=== PATIENT | male | born 1945 | race Caucasian/White ===

== ENCOUNTER 2021-09-18 10:45 | Outpatient (CLI) | payer MEDICARE, SELFPAY ==
--- NOTE | ~2021-09-18 | XR_ITS ---
XR knee RT 3V DATE: 09/18/2021 11:32 INDICATION: Right knee pain, chronic TECHNIQUE: [place] and weightbearing AP and lateral views COMPARISON: None FINDINGS: Mild suprapatellar knee joint effusion is suggested. There is osteopenia. There is patellar enthesopathy at quadriceps and patellar tendon insertion sites. Probable old healed right fibular neck fracture. No recent fracture or dislocation, periosteal reacti on or bone destruction. There is severe loss of medial compartment joint space height. There is mild chondrocalcinosis at med ial and lateral compartments. No radiopaque intra-articular loose body is noted. There is calcification of the femoral and popliteal arteries. IMPRESSION: Mild suprapatellar knee joint effusion Osteopenia Prominent loss of joint space height at the medial compartment Mild chondrocalcinosis Reviewed, dictated and finalized at location A.
== END 2021-09-18 10:46 | disposition home or self-care (01) ==
LOC: ANHIMG 10:50
PROVIDERS: PCP Physician Assistant; Visit Provider Physician Assistant
DX: M11.261 Other chondrocalcinosis, right knee (principal); M25.461 Effusion, right knee; M85.861 Other specified disorders of bone density and structure, right lower leg
CPT/HCPCS: 73562

== ENCOUNTER 2021-09-20 09:43 | Outpatient (CLI) | payer MEDICARE, SELFPAY ==
--- NOTE | ~2021-09-20 | XR_ITS ---
EXAMINATION: XR barium swallow modified DATE: 09/20/2021 10:20 INDICATION: Dysphagia, unspecified TECHNIQUE: Modified barium esophagram was performed by myself to administered fluoroscopy, in conjun ction with speech pathologist who administered barium in varying consistencies as per speech patholog ist documentation. This was recorded on tape. A single fluoroscopic spot image was recorded. The DAP for this procedure was 1. Gycm2. Fluoroscopy exposure time was 1.7 minutes. FINDINGS: Oral stage: Adequate function. Pharyngeal phase: Adequate function. Laryngeal penetration: None. Aspiration: None. Laryngeal sensitivity: Present. IMPRESSION: Normal modified barium swallow. Please refer to speech pathologist findings and specific feeding recommendations. Reviewed, dictated and finalized at location A.
--- NOTE | 2021-09-20 11:13 | STOPEVAL ---
MODIFIED BARIUM SWALLOW EVALUATION: Thank you for referring Joseph Orta JrCristal to [facility] Attending Provider: Adrian Cavazos PA-C fax: [phone] Modified Barium Swallow Evaluation Recent Swallowing History Reports Dysphagia Yes: occasionally food gets caught Onset of Dysphagia it started years ago History of Dysphagia No History of Related Medical Diagnosis Parkinson's Disease Other Factors Impacting Dysphagia None History of Pneumonia No Reported Difficult Consistencies Solids Intake Method Prior to Swallow Oral Evaluation Diet Prior to Swallow Evaluation Regular, Level 7 Liquid Consistency Prior to Swallow Thin (0) Evaluation Consistency Solid Consistency Method of Presentation Spoon Oral Preparatory Symptoms None Oral Phase Symptoms None Pharyngeal Phase Symptoms Within Functional Limits,Bony Protuberance Severity of Vallecular Residue None - 0% No Residue Severity of Pyriform Sinus Residue None - 0% No Residue 8 Point Laryngeal Penetration-Aspiration Material Does Not Enter Airway Scale Cervical/Esophageal Symptoms None Mixed Consistency Method of Presentation Spoon Oral Preparatory Symptoms None Oral Phase Symptoms None Pharyngeal Phase Symptoms Within Functional Limits,Bony Protuberance Severity of Vallecular Residue None - 0% No Residue Severity of Pyriform Sinus Residue None - 0% No Residue 8 Point Laryngeal Penetration-Aspiration Material Does Not Enter Airway Scale Cervical/Esophageal Symptoms Within Functional Limits Pureed Consistency Method of Presentation Spoon Oral Preparatory Symptoms None Oral Phase Symptoms None Pharyngeal Phase Symptoms Within Functional Limits,Bony Protuberance Severity of Vallecular Residue None - 0% No Residue Severity of Pyriform Sinus Residue None - 0% No Residue 8 Point Laryngeal Penetration-Aspiration Material Does Not Enter Airway Scale Cervical/Esophageal Symptoms Within Functional Limits Thin Uncontrolled 2 Method of Presentation Straw Oral Preparatory Symptoms None Oral Phase Symptoms None Pharyngeal Phase Symptoms Within Functional Limits,Bony Protuberance Severity of Vallecular Residue None - 0% No Residue Severity of Pyriform Sinus Residue None - 0% No Residue 8 Point Laryngeal Penetration-Aspiration Material Does Not Enter Airway Scale Cervical/Esophageal Symptoms None Thin Uncontrolled 1 Method of Presentation Cup Oral Preparatory Symptoms None Oral Phase Symptoms None Pharyngeal Phase Symptoms Within Functional Limits
== END 2021-09-20 09:44 | disposition home or self-care (01) ==
LOC: ANHIMG 09:44
PROVIDERS: PCP Physician Assistant; Visit Provider Physician Assistant
DX: R13.10 Dysphagia, unspecified (principal)
CPT/HCPCS: 92611

== ENCOUNTER 2022-07-26 02:27 | Day surgery (SDC) | payer MEDICARE, SELFPAY ==
[2022-07-11 14:28] VITALS: BMI 27.8
--- NOTE | 2022-07-26 10:31 | WPDANESEPPF ---
Anes - Initial Pre Proc Eval Procedure: Operation Date: 07/26/22 14:15 Proposed Procedures p Esophagogastroduodenoscopy - Zander Alfonso MD Date/Time: 07/26/22 10:31 Surgeon: Zander Alfonso MD Pre Op Diagnosis: dysphagia Patient Data Age: 76 Gender: M Height: 1.7 m Weight: 80.5 kg Allergies Allergy/AdvReac Type Severity Reaction Status Date / Time lisinopril AdvReac Intermediate Cough Verified 07/26/22 10:30 Home Medications Medication Instructions Recorded Confirmed Type aspirin 81 mg tablet,delayed 81 mg PO DAILY 06/26/21 07/11/22 History release (Adult Aspirin Regimen) donepezil 10 mg tablet 10 mg PO QHS #90 tabs 12/31/21 07/11/22 Rx metformin 500 mg tablet 500 mg PO BID #180 tabs 12/31/21 07/11/22 Rx dulaglutide 0.75 mg/0.5 mL 0.75 mg (0.5 mL) subcut WEEKLY #2 01/29/22 07/11/22 Rx subcutaneous pen injector mL (Trulicity) memantine 10 mg tablet 10 mg PO BID #180 tabs 02/04/22 07/11/22 Rx finasteride 5 mg tablet 5 mg PO DAILY #90 tabs 02/06/22 07/11/22 Rx carbidopa 25 mg-levodopa 100 mg 1 tablet PO TID #270 tabs 03/01/22 07/11/22 Rx tablet glimepiride 4 mg tablet 4 mg PO QAM #90 tabs 03/01/22 07/11/22 Rx metoprolol succinate 25 mg 25 mg PO DAILY #90 tabs 03/13/22 07/11/22 Rx tablet,extended release 24 hr pramipexole 1.5 mg tablet 1.5 mg PO TID #270 tabs 03/26/22 07/11/22 Rx empagliflozin 25 mg tablet 25 mg PO DAILY #90 tabs 04/11/22 07/11/22 Rx (Jardiance) rosuvastatin 20 mg tablet 20 mg PO DAILY #90 tabs 04/11/22 07/11/22 Rx tamsulosin 0.4 mg capsule 0.4 mg PO DAILY #90 caps 02/03/23 Rx Patient hx anesthesia problems: none Family hx anesthesia problems: none Results Review: All pre-operative results and documents have been reviewed as part of the pre-operative evaluation. [facility] Past Medical History Medical History Cancer Diabetes History of ankle fracture Surgical History Surgical History History of arthroscopic knee surgery History of heart bypass surgery History of pancreatectomy Family History Family History Father Hypertension Heart disease Cerebrovascular accident Social History Social History Smoking status: Former smoker Second hand tobacco smoke exposure: No Smoking end date: 04/08/86 Alcohol intake: never Substance use: unknown Substance use type: does not use Lack of Transportation: No Lack of Food: Never True Current Housing: I Have Housing Concerned About Future Housing: No Difficulty Paying Gas/Electric Bills: No Difficulty Paying for Meds: No Currently Unemployed: No Education: Bachelor's Degree Difficulty w/ Childcare or Family Care: No Living arrangements: with family Spiritual care concerns: No Anes - Eval Final PreProcedure Day of Procedure 07/26/22 10:31 Patient weight: overweight Heart: regular rate and rhythm Lungs: clear to auscultation Neurological: alert and oriented Last oral intake: 4 hours (coffee 530am) Emergent: no Anesthetic plan: proceed Anesthesia type and monitoring: general GIVS and standard monitoring Results Review: All pre-operative results and documents have been reviewed as part of the pre-operative evaluation. Informed Consent: The patient's anesthetic plan and its attendant risks and benefits were discussed with the patient/family/POA. Questions were solicited and answers provided to the satisfaction of the patient/family/POA.
[2022-07-26 10:32] VITALS: BP 126/70; PULSE 62; RESP 18; TEMP 36.2; O2SAT 100
[2022-07-26] MEDS: LACTATED RINGERS 1,000 ML 150 ML IV CONT (10:47)
--- NOTE | 2022-07-26 10:51 | PM.HPGS ---
History of Present Illness History of Present Illness Consent: Risks, benefits, and alternatives have been discussed and questions answered. Patient agrees to proceed with procedure. Chief complaint: dysphagia Narrative: Joseph Orta Jr. is a 76 year old male with progressive dysphagia over several months, had EGD with dilatation about 20 years ago Review of Systems Constitutional: Constitutional: Denies headache(s) and Denies weakness Eyes: Eyes: Denies blurry vision ENT: Reports Normal hearing present, Denies headache(s) and Denies neck pain Cardiovascular: Cardiovascular: Denies chest pain and Denies dyspnea Respiratory: Respiratory: Denies dyspnea Gastrointestinal: Gastrointestinal: Reports no additional gastrointestinal complaints Genitourinary: Genitourinary: Denies dysuria Musculoskeletal: Musculoskeletal: Denies neck pain Integumentary/Breasts: Skin/Breast: Denies dry skin Neurologic: Reports Normal hearing present, Denies headache(s) and Denies weakness Psychiatric: Psychiatric: Denies anxiety Endocrine: Endocrine: Denies change in body appearance Hematologic/Lymphatic: Hematologic/Lymphatic: Denies easy bleeding Allergic/Immunologic: Allergic/Immunologic: Denies urticaria PMFSH Past Medical History Medical History (Updated 07/26/22 @ 10:51 by Zander Alfonso MD) Cancer Diabetes Dysphagia History of ankle fracture Surgical History Surgical History History of arthroscopic knee surgery History of heart bypass surgery History of pancreatectomy Family History Family History Father Hypertension Heart disease Cerebrovascular accident Social History Social History Smoking status: Former smoker Second hand tobacco smoke exposure: No Smoking end date: 04/08/86 Alcohol intake: never Substance use: unknown Substance use type: does not use Lack of Transportation: No Lack of Food: Never True Current Housing: I Have Housing Concerned About Future Housing: No Difficulty Paying Gas/Electric Bills: No Difficulty Paying for Meds: No Currently Unemployed: No Education: Bachelor's Degree Difficulty w/ Childcare or Family Care: No Living arrangements: with family Spiritual care concerns: No Meds Home Medications and Allergies Home Medications Medication Instructions Recorded Confirmed Type aspirin 81 mg tablet,delayed 81 mg PO DAILY 06/26/21 07/11/22 History release (Adult Aspirin Regimen) donepezil 10 mg tablet 10 mg PO QHS #90 tabs 12/31/21 07/11/22 Rx metformin 500 mg tablet 500 mg PO BID #180 tabs 12/31/21 07/11/22 Rx dulaglutide 0.75 mg/0.5 mL 0.75 mg (0.5 mL) subcut WEEKLY #2 01/29/22 07/11/22 Rx subcutaneous pen injector mL (Trulicity) memantine 10 mg tablet 10 mg PO BID #180 tabs 02/04/22 07/11/22 Rx finasteride 5 mg tablet 5 mg PO DAILY #90 tabs 02/06/22 07/11/22 Rx carbidopa 25 mg-levodopa 100 mg 1 tablet PO TID #270 tabs 03/01/22 07/26/22 Rx tablet glimepiride 4 mg tablet 4 mg PO QAM #90 tabs 03/01/22 07/11/22 Rx metoprolol succinate 25 mg 25 mg PO DAILY #90 tabs 03/13/22 07/26/22 Rx tablet,extended release 24 hr pramipexole 1.5 mg tablet 1.5 mg PO TID #270 tabs 03/26/22 07/11/22 Rx empagliflozin 25 mg tablet 25 mg PO DAILY #90 tabs 04/11/22 07/11/22 Rx (Jardiance) rosuvastatin 20 mg tablet 20 mg PO DAILY #90 tabs 04/11/22 07/11/22 Rx tamsulosin 0.4 mg capsule 0.4 mg PO DAILY #90 caps 07/12/22 07/26/22 Rx Allergies Allergy/AdvReac Type Severity Reaction Status Date / Time lisinopril AdvReac Intermediate Cough Verified 07/26/22 10:30 Vital Signs Vital Signs - 24 hr 07/26/22 10:32 Temperature 97.1 F L Pulse Rate 62 Respiratory Rate 18 Blood Pressure 126/70 Pulse Oximetry 100 Oxygen Delivery Room Air Exam Const: General: comfo
[2022-07-26 10:56] LABS: Glucose Point of Care 146 mg/dl (65-105)
[2022-07-26 11:08] VITALS: BP 124/63; PULSE 68; RESP 22; O2SAT 100
[2022-07-26 11:18] VITALS: BP 113/68; PULSE 80; RESP 15; O2SAT 98
[2022-07-26 11:28] VITALS: BP 130/91; PULSE 88; RESP 20; O2SAT 95
== END 2022-07-26 11:56 | disposition home or self-care (01) ==
PROVIDERS: PCP Physician Assistant; Visit Provider Internal Medicine Gastroenterology
PROC: 0DJ08ZZ Inspection of Upper Intestinal Tract, Via Natural or Artificial Opening Endoscopic (ICD-10-PCS; CPT 43235; principal; 2022-07-26 14:15)
DX: K21.00 Gastro-esophageal reflux disease with esophagitis, without bleeding (principal); K22.2 Esophageal obstruction; K44.9 Diaphragmatic hernia without obstruction or gangrene; K29.70 Gastritis, unspecified, without bleeding; E11.9 Type 2 diabetes mellitus without complications; Z95.1 Presence of aortocoronary bypass graft; Z87.891 Personal history of nicotine dependence; Z79.82 Long term (current) use of aspirin; Z79.84 Long term (current) use of oral hypoglycemic drugs; Z79.899 Other long term (current) drug therapy
CPT/HCPCS: 43239; 43249; 82948; 88305; C1726; J2704; J7120

== ENCOUNTER 2023-02-28 18:04 | Emergency (ER) | payer MEDICARE, SELFPAY ==
--- NOTE | ~2023-02-28 | CT_ITS ---
EXAMINATION: CT cervical spine wo con DATE: 02/28/2023 19:11 INDICATION: Tripped over dog, fell and struck head on concrete TECHNIQUE: Computed tomography (CT) of the cervical spine was performed without intravenous contrast. Automated exposure control and iterative reconstruction technique were employed. Exam dose: 274.39 mGy-cm total exam DLP. COMPARISON: None FINDINGS: C1 and C2 are normally aligned and the odontoid process is intact. No fracture or dislocati on or locked facet or prevertebral soft tissue swelling is detected. There is degenerative change at the articulation of the anterior process of the atlas and the odontoi d process. Very prominent anterior spurring is noted in the cervical spine. There is fusion of the apophyseal pretty ints on the right at C2-3 and degenerative change at the remaining cervical apophyseal joints. Uncove rtebral joint spurring is noted at multiple levels, most prominent on the left at C3-4 and bilaterall y at C6-7.. IMPRESSION: Cervical spondylosis No fracture or dislocation or locked facet Reviewed, dictated and finalized at Location A. Reviewed, dictated and finalized at location A.
--- NOTE | ~2023-02-28 | CT_ITS ---
EXAMINATION: CT brain wo con DATE: 02/28/2023 19:10 INDICATION: Fall. Struck head on concrete TECHNIQUE: Computed tomography (CT) of the head was performed without intravenous contrast. The mA wa s adjusted according to patient size. Iterative reconstruction technique was employed. Exam dose: 60 5.33 mGy-cm total exam DLP. COMPARISON: None FINDINGS: High posterior left parietal cephalohematoma. No coup or contrecoup intracranial injury is noted. There is central and cortical cerebral and cerebellar atrophy. No intracranial mass lesion or hemorrhage or cerebrovascular accident, midline shift or mass effect. No subdural or epidural hematoma is detected. There is nonspecific diminished attenuation of the cerebral white matter, likely due to chronic small vessel ischemic change. Cerebral atherosclerosis is noted. No skull fracture or bone destruction. There is prominent opacification of some right ethmoid air cells as well as opacification in the incl uded very upper aspect of the right maxillary sinus. The mastoid air cells are normally developed and aerated. IMPRESSION: High posterior left parietal cephalohematoma; no skull fracture or acute intracranial fi nding Reviewed, dictated and finalized at Location A. Reviewed, dictated and finalized at location A. IMPRESSION: High posterior left parietal cephalohematoma; no skull fracture or acute intracranial finding
[2023-02-28 18:43] VITALS: BP 126/86; PULSE 82; RESP 16; TEMP 36.8; O2SAT 100
--- NOTE | 2023-02-28 20:17 | PC.NURSE ---
Pt was A&Ox4. and pt did not want to wait any longer. Left before being seen.
== END 2023-02-28 21:36 | disposition left against medical advice (07) ==
PROVIDERS: Emergency Provider Emergency Medicine; PCP Physician Assistant
DX: S09.90XA Unspecified injury of head, initial encounter (principal); W01.0XXA Fall on same level from slipping, tripping and stumbling without subsequent striking against object, initial encounter
CPT/HCPCS: 70450; 72125; 99199

== ENCOUNTER 2023-04-25 09:15 | Inpatient (IN) | payer MEDICARE, SELFPAY ==
[2023-04-25] VITALS (8 sets, daily range): BP systolic 131–163; BP diastolic 63–94; PULSE 74–90; RESP 15–20; TEMP 36.4–37.6; O2SAT 91–99; BMI 25.2
--- NOTE | ~2023-04-25 | XR_ITS ---
EXAMINATION: XR chest 1V portable DATE: 04/25/2023 10:15 INDICATION: Cough. TECHNIQUE: A single frontal view of the chest was obtained. COMPARISON: None. FINDINGS: There are airspace opacities in left lower lung zone. No pleural effusion or pneumothorax. The heart size is normal. Median sternotomy wires are noted. IMPRESSION: 1. Airspace opacities in left lower lung zone, consistent with atelectasis versus pneumonia. Reviewed, dictated and finalized at location A. T ROPE WALKER IMPRESSION: 1. Airspace opacities in left lower lung zone, consistent with atelectasis vers us pneumonia.
--- NOTE | ~2023-04-25 | NM_ITS ---
EXAMINATION: NM lung vent and perfusion DATE: 04/28/2023 13:33 INDICATION: Acute hypoxia with poor quality pulmonary artery CT angiogram. TECHNIQUE: 10.3 mCi xenon-133 by inhalation and 0.8 mCi Tc-99m MAA by intravenous route. Scintigraph ic images of the chest were obtained. COMPARISON: CT dated 04/27/2023 FINDINGS: There is homogeneous radiotracer activity throughout the lungs on the single breath ventilation seque nce. There is however some delayed washout in the left lung suggesting some degree of obstructive pul monary disease. Small region of decreased perfusion at the posterior lingula with corresponding airsp palmer opacities on prior CT. IMPRESSION: 1. Low probability for pulmonary embolism. Reviewed, dictated and finalized at location A. [employer]DEL [employer]
--- NOTE | ~2023-04-25 | XR_ITS ---
EXAMINATION: XR chest 1V portable INDICATION: Shortness of breath TECHNIQUE: Portable AP chest at 0540 hours COMPARISON: 04/29/2023 FINDINGS: Bibasilar airspace opacities persist but have improved. Small pleural effusions have also d ecreased. There is no pneumothorax. The cardiomediastinal silhouette is stable. IMPRESSION: 1. Improved bibasilar airspace opacities, consistent with pneumonia. 2. Small pleural effusions. Reviewed, dictated and finalized at location F. OIDERY WORKER
--- NOTE | ~2023-04-25 | XR_ITS ---
EXAMINATION: XR chest 1V portable DATE: 04/29/2023 05:25 INDICATION: Pneumonia. TECHNIQUE: A single frontal view of the chest was obtained. COMPARISON: Chest single view 04/27/2023 FINDINGS: There are airspace opacities in the lower lung zones. There are small pleural effusions. No pneumothorax. The heart size is normal. Median sternotomy wires are noted. IMPRESSION: 1. Airspace opacities in the lower lung zones with worsening on the right, consistent with pneumonia. 2. Small pleural effusions. Reviewed, dictated and finalized at location E. MING MACHINE SET UP OPERATOR IMPRESSION: 1. Airspace opacities in the lower lung zones with worsening on the right, cons istent with pneumonia. 2. Small pleural effusions.
--- NOTE | ~2023-04-25 | XR_ITS ---
EXAMINATION: XR chest 1V portable DATE: 04/27/2023 10:49 INDICATION: Pneumonia. TECHNIQUE: A single frontal view of the chest was obtained. COMPARISON: Chest single view 04/25/2023 FINDINGS: The patient is rotated to his right. There are airspace opacities in left lower lung zone. No pleural effusion or pneumothorax. The heart size is normal. Median sternotomy wires are noted. IMPRESSION: 1. Stable airspace opacities in left lower lung zone, consistent with atelectasis versus pneumonia. Reviewed, dictated and finalized at location A. DRAWER IMPRESSION: 1. Stable airspace opacities in left lower lung zone, consistent with atelectas is versus pneumonia.
--- NOTE | ~2023-04-25 | XR_ITS ---
MODIFIED ESOPHAGRAM HISTORY: Recurrent an ongoing aspiration pneumonia TECHNIQUE: Modified barium esophagram was performed on 05/02/2023. I administered fluoroscopy and per formed the exam with speech pathologist. Patient was seated for lateral fluoroscopic imaging for ing estion of thin liquids, pudding, solids and quantified amounts, followed by thin liquids in uncontrol led amounts. This was recorded on tape. A single fluoroscopic spot image was also recorded. The DAP f or this procedure was 2.08 Gycm2. The amount of fluoroscopy time used during this procedure was 3.5 m inutes. FINDINGS: Oral stage: Adequate function. Pharyngeal stage: There is reduced laryngeal elevation, laryngeal and adduction and tongue base retra ction. Small to moderate residue in the vallecula and moderate to large amount of residue at the piri form sinus. There is laryngeal penetration without aspiration with thin liquids, pudding consistencie s and complex consistency of fluid and pudding. This improved with swallows with the head in flexion. There are prominent cervical anterior endplate osteophytes which impress upon the posterior wall of the upper esophagus. Cervical/esophageal stage: Adequate function. IMPRESSION: Prominent pharyngeal dysphagia with laryngeal penetration and aspiration with multiple co nsistencies with some improvement with the head in flexion. Please correlate with speech pathologist findings and specific feeding recommendations. Reviewed, dictated and finalized at location A. UM FORMING MACHINE OPERATOR IMPRESSION: Prominent pharyngeal dysphagia with laryngeal penetration and aspir ation with multiple consistencies with some improvement with the head in flexio n. Please correlate with speech pathologist findings and specific feeding rosalio mmendations.
--- NOTE | ~2023-04-25 | CT_ITS ---
EXAMINATION: CT abdomen pelvis wo con DATE: 04/27/2023 16:59 INDICATION: diarrhea TECHNIQUE: Computed tomography (CT) of the abdomen and pelvis was performed without intravenous contr ast. Automated exposure control and iterative reconstruction technique were employed. The dose-length product was 428.65 mGy-cm. COMPARISON: Concurrent CTPA. FINDINGS: Lower thorax: Coronary artery calcifications. Scattered subsegmental consolidative opacities. Liver: Normal. Biliary/Gallbladder: Gallbladder is absent. No bile duct dilation. Pancreas: No mass or duct dilation. Spleen: Normal. Adrenals: 2.0 cm indeterminate density (23 Hounsfield units) left adrenal mass. Kidneys: No suspicious mass, obstructing stone, or hydronephrosis. GI tract: No small or large bowel dilation. Normal appendix. Mesentery/Peritoneum: No ascites, mass, or free air. Small cluster of rounded calcifications between the descending colon and right lobe of the liver, likely dystrophic calcifications. Retroperitoneum: No mass. Atherosclerotic abdominal aortic and/or arterial calcifications. Pelvis: Prostatomegaly. Bladder diverticuli. Soft Tissues: Multiple fat-containing anterior abdominal hernias. Bones: No acute osseous finding. IMPRESSION: No acute abdominopelvic process detected. Indeterminate 2 cm left adrenal mass, probably benign, consider 12 month follow-up adrenal CT if ther e is no history of cancer. Reviewed, dictated and finalized at location K. AURANT COOK IMPRESSION: No acute abdominopelvic process detected. Indeterminate 2 cm left adrenal mass, probably benign, consider 12 month follow -up adrenal CT if there is no history of cancer.
--- NOTE | ~2023-04-25 | CT_ITS ---
EXAMINATION: CTA chest PE protocol DATE: 04/27/2023 17:00 INDICATION: acute hypoxia TECHNIQUE: Computed tomography angiography (CTA) of the chest was performed with 100 mL Omnipaque-350 intravenous contrast timed to evaluate the pulmonary arteries. Coronal maximum intensity projection 3D-reconstructions were created by the technologist. The dose-length product (DLP) was 353.61 mGy-cm. Automated exposure control and iterative reconstruction technique were employed. COMPARISON: None. FINDINGS: Considerable motion artifact. Lung parenchyma and airways: Multifocal areas of subsegmental consolidation involving the lingula and bilateral lower lobes. Pleura: Unremarkable. Thoracic inlet, axillae and chest wall: Unremarkable. Thoracic aorta: Vertebral artery on the left takes origin directly from the arch. Moderate arch calci fication. Mediastinum: Normal. Heart and pericardium: Normal. Coronary artery calcifications: Mild. Upper abdomen: Please refer to the concurrent CT abdomen and pelvis study for additional details. Bones: No acute osseous finding. Pulmonary arteries: Study quality: Degraded by motion such that segmental emboli could be missed. No central pulmonary emboli detected. IMPRESSION: Significant motion limitation, such that subsegmental and more distal arterial branches are not adequ ately evaluated. No central embolus detected. Pulmonary opacities may represent multifocal pneumonia in the appropriate clinical context. Reviewed, dictated and finalized at location K. UTER TECHNICAL SPECIALIST IMPRESSION: Significant motion limitation, such that subsegmental and more distal arterial branches are not adequately evaluated. No central embolus detected. Pulmonary opacities may represent multifocal pneumonia in the appropriate clini yg context.
[2023-04-25 09:37] LABS: Appearance Urine Clear (Clear); Bacteria Urine None Seen /hpf; Bilirubin Urine Negative (Negative); Blood Urine Negative (Negative); Color Urine Yellow (Yellow); Glucose Urine UA 3+ mg/dL (Negative); Ketones Urine 2+ mg/dL (Negative); Leukocyte Esterase Ur Negative LEU/UL (Negative); Nitrate Urine Negative (Negative); Protein Urine 1+ mg/dL (Negative); RBC Urine 0-2 /hpf (0-2); Specific Grav Ur 1.024 (1.001-1.035); Squamous Epithelial Cell Urine None seen /hpf (Few); Urobilinogen Urine 0.2 mg/dL (<2.0); WBC Urine 0-5 /hpf; pH Urine 5.5 (5.0-9.0)
[2023-04-25 09:45] LABS: Add Urine Microscopic? YES
--- NOTE | 2023-04-25 09:49 | ECG_ITS ---
Measurements Intervals [place] Rate: 77 P: 21 MS: 204 QRS: 35 QRSD: 72 T: 71 QT: 369 QTc: 418 Interpretive Statements SINUS RHYTHM VENTRICULAR PREMATURE COMPLEX NONSPECIFIC T-WAVE ABNORMALITY- HIGH LATERAL LEADS BASELINE ARTIFACT- I, II, III, AVR, AVL, AVF BORDERLINE ECG NO PREVIOUS ECG AVAILABLE FOR COMPARISON Electronically Signed On 04-25-2023 11:31:58 [employer] MACHINE OPERATOR by Dakotah Vaughn D.O.
--- NOTE | 2023-04-25 09:53 | ED.URI ---
HPI - URI/Sore Throat General Chief Complaint: Upper Respiratory Infection Stated Complaint: URI s/s Time Seen by Provider: 04/25/23 09:31 Source: patient and family History of Present Illness HPI Narrative: 77-year-old male with history of dementia, pancreatic cancer, CABG presents today with complaints of cough, sore throat, fatigue, weakness that started on Friday. Patient with loose stools but no diarrhea. Denies nausea, vomiting, abdominal pain, fevers, body aches but does endorse being cold. is at the bedside. Patient able to eat drink at this time without issue. no known sick contacts Related Data Home Medications Medication Instructions Recorded Confirmed aspirin 81 mg tablet,delayed 81 mg PO QHS 06/26/21 04/25/23 release (Adult Aspirin Regimen) metformin 500 mg tablet 500 mg PO DAILY 04/25/23 04/25/23 metoprolol succinate 25 mg 25 mg PO DAILY 04/25/23 04/25/23 tablet,extended release 24 hr Allergies Allergy/AdvReac Type Severity Reaction Status Date / Time lisinopril AdvReac Intermediate Cough Verified 02/28/23 18:05 Review of Systems Review of Systems: All systems reviewed & are unremarkable except as noted in HPI and below PMFSH Past Medical History Medical History Cancer Diabetes Dysphagia History of ankle fracture Surgical History Surgical History History of arthroscopic knee surgery History of heart bypass surgery History of pancreatectomy Family History Family History Father Hypertension Heart disease Cerebrovascular accident Social History Social History Smoking status: Former smoker Second hand tobacco smoke exposure: No Smoking end date: 04/08/86 Alcohol intake: unknown Substance use: former Substance use type: does not use Lack of Transportation: No Lack of Food: Never True Current Housing: I Have Housing Concerned About Future Housing: No Difficulty Paying Gas/Electric Bills: No Difficulty Paying for Meds: No Currently Unemployed: No Education: Bachelor's Degree Difficulty w/ Childcare or Family Care: No Living arrangements: with family Spiritual care concerns: No Exam Const: General: cooperative, healthy appearing, comfortable, no acute distress and well developed Orientation/consciousness: patient oriented x3 HENMT: Head: normal to inspection Throat: posterior oropharynx abnormal erythema; no exudates Eyes: General: appearance normal, both eyes and all related structures Resp: Effort & Inspection: normal respiratory effort and able to speak in complete sentences Auscultation: rales diffuse Cardio: Rate: regular rate Rhythm: regular rhythm Heart sounds: S1 normal heart sound present and S2 normal heart sound present Neuro: General: patient oriented x3 Course Vital Signs Vital signs: Vital Signs Temperature 97.8 F 04/25/23 09:16 Pulse Rate 83 04/25/23 09:16 Respiratory Rate 20 04/25/23 09:16 Blood Pressure 132/66 04/25/23 09:16 Pulse Oximetry 99 04/25/23 09:16 Oxygen Delivery Room Air 04/25/23 09:16 Temperature 98.4 F 04/26/23 04:24 Pulse Rate 86 04/26/23 04:24 Respiratory Rate 14 04/26/23 04:24 Blood Pressure 118/67 04/26/23 04:24 Pulse Oximetry 93 04/26/23 04:24 Oxygen Delivery Room Air 04/25/23 21:45 MDM - URI/Sore Throat MDM Narrative Medical decision making narrative: 69-year-old male HPI is noted. Workup to include CBC, CMP, B and P,chest x-ray, influenza, COVID, RSV. WBC is 11.1, CMP shows Kidney function normal,BNP 424, chest x-ray shows possible left lower lobe pneumonia, urine without signs of infection. Due to cough will treat with ceftriaxone and azithromycin. Case discussed with the hospitalist due to increased weakness, de
[2023-04-25 10:07] LABS: Influenza A QL RT-PCR Negative (Negative); Influenza B QL RT-PCR Negative (Negative); RSV RNA, RT-PCR Negative (Negative); SARS-CoV-2 RNA PCR Negative (Negative)
[2023-04-25 10:24] LABS: Basophils Percent Auto 0.3 % (0.2-1.2); Eosinophils Absolute Auto 0.2 K/mm3 (0-0.3); Eosinophils Percent Auto 2.2 % (0-4.4); Hematocrit 47.2 % (42.0-52.0); Immature Granulocyte Absolute 0.06 K/mm3 (0.00-0.031); Immature Granulocyte Percent A 0.5 % (0-0.5); Lymphocytes Absolute Auto 2.43 K/mm3 (0.9-3.2); Lymphocytes Percent Auto 21.9 % (18.3-44.2); Mean Corpuscular HGB Conc 31.8 g/dl (32-36); Mean Corpuscular Hemoglobin 28.5 pg (26-34); Mean Corpuscular Volume 89.6 fl (80-100); Mean Platelet Volume 9.7 fl (7.4-10.4); Monocytes Absolute Auto 1.4 K/mm3 (0.1-0.6); Monocytes Percent Auto 12.3 % (2.6-8.5); Neutrophils Percent Auto 62.8 % (45.5-73.1); Platelet Count Result 206 k/mm3 (150-375); Red Blood Count 5.27 M/mm3 (4.6-6.20); White Blood Count 11.1 K/mm3 (4.5-10.0)
[2023-04-25 10:35] LABS: Alanine Aminotransferase 26 U/L (6-50); Albumin Level 3.9 g/dL (3.5-5.1); Alkaline Phosphatase 112 U/L (38-126); Anion Gap 13 mmol/L (8-16); Aspartate Amino Transferase 37 U/L (17-59); Blood Urea Nitrogen 14 mg/dL (9-20); Calcium 8.3 mg/dL (8.4-10.2); Carbon Dioxide 22 mmol/L (22-30); Chloride 103 mmol/L (98-107); Estimated CRCL calculation 62 ml/min; Estimated Glomerular Filt Rate > 60; Glucose 63 mg/dL (65-110); Potassium 3.5 mmol/L (3.4-5.0); Sodium 138 mmol/L (137-145)
[2023-04-25 10:42] LABS: NT Pro B Type Natriuretic Pept 424 pg/mL (19.9-100)
[2023-04-25] MEDS: SODIUM CHLORIDE 0.9% IV 500 ML 999 ML IV CONT (10:44)
[2023-04-25] MEDS: cefTRIAXone 2 GM/NS 100 ML 2 GM/100 ML BAG IVPB (11:55)
[2023-04-25] MEDS: AZITHROMYCIN 500 MG/NS 250 ML 500 MG/250 ML BAG 250 MG IVPB (12:18)
--- NOTE | 2023-04-25 12:34 | PC.NURSE ---
This patient, Joseph Orta Jr., was admitted to Medical Room 244-. Patient/family oriented to hospital policies and general routines including ID bracelet, bed and alarms, visiting hours, pain management, procedures, bathroom and other care routines, personal items, smoking policy, room service/diet, and visiting hours. Information on how to activate the Rapid Response Team has been discussed. Patient/Family are encouraged to report perceived risks to care and to ask questions if they do not understand what they are told or what they should do.
[2023-04-25 13:26] LABS: Lactic Acid Reflex 1.1 mmol/L (0.7-2.0)
[2023-04-25 13:30] LABS: CRP 4.5 mg/dL (<1.0)
--- NOTE | 2023-04-25 15:24 | PM.IMHP ---
H&P: HPI History of Present Illness Date/Time: 04/25/23 15:24 Chief Complaint: weakness Narrative: This is a 69-year-old male juan j with a past medical history of dementia, diabetes, parkinson's disease, BPH and CABG. The HPI is obtained from medical record. When I tried to interview the patient he refused to participate and asked that I call his Aby. When I completed in ROS with him he denied any complaints. I tried to contact his by phone but received a voicemail. According to the ER notes, he presents to the ER with his with complaints of cough, sore throat, fatigue, weakness for the past 2 days. In the ER his white count was mildly elevated at 11.1, BNP 424, CRP 4.5, glucose 63. Chest x-ray shows airspace opacities in the left lower lung zone consistent with atelectasis versus pneumonia. Lactic acid was normal, he is afebrile, and not requiring oxygen at this time. On assessment his lungs are coarse with rhonchi throughout bilateral lower lobes. He was admitted for concerns of community-acquired pneumonia with treatment of IV antibiotics. Review of Systems Review of Systems: ROS unobtainable: Yes unobtainable due to mental status PMFSH Past Medical History Medical History Cancer Diabetes Dysphagia History of ankle fracture Surgical History Surgical History History of arthroscopic knee surgery History of heart bypass surgery History of pancreatectomy Family History Family History Father Hypertension Heart disease Cerebrovascular accident Social History Social History Smoking status: Former smoker Second hand tobacco smoke exposure: No Smoking end date: 04/08/86 Alcohol intake: unknown Substance use: former Substance use type: does not use Lack of Transportation: No Lack of Food: Never True Current Housing: I Have Housing Concerned About Future Housing: No Difficulty Paying Gas/Electric Bills: No Difficulty Paying for Meds: No Currently Unemployed: No Education: Bachelor's Degree Difficulty w/ Childcare or Family Care: No Living arrangements: with family Spiritual care concerns: No Meds Home Medications and Allergies Home Medications Medication Instructions Recorded Confirmed Type aspirin 81 mg tablet,delayed 81 mg PO DAILY 06/26/21 01/03/23 History release (Adult Aspirin Regimen) omeprazole 40 mg capsule,delayed 40 mg PO DAILY #30 caps 07/26/22 01/03/23 Rx release memantine 10 mg tablet 10 mg PO BID #180 tabs 08/29/22 01/03/23 Rx finasteride 5 mg tablet 5 mg PO DAILY #90 tabs 09/02/22 01/03/23 Rx glimepiride 4 mg tablet 4 mg PO QAM #90 tabs 12/16/22 01/03/23 Rx dulaglutide 0.75 mg/0.5 mL 0.75 mg (0.5 mL) subcut WEEKLY #2 12/19/22 01/03/23 Rx subcutaneous pen injector mL (Trulicity) rosuvastatin 20 mg tablet 20 mg PO DAILY #90 tabs 12/26/22 01/03/23 Rx carbidopa 25 mg-levodopa 100 mg 1 tablet PO TID #270 tabs 01/02/23 01/02/23 Rx tablet donepezil 10 mg tablet 10 mg PO QHS #90 tabs 01/02/23 01/02/23 Rx metformin 500 mg tablet See Rx Instructions .Route 01/02/23 01/02/23 Rx .COMPLEX #180 tabs metoprolol succinate 25 mg See Rx Instructions .Route 01/02/23 01/02/23 Rx tablet,extended release 24 hr .COMPLEX #90 tabs tamsulosin 0.4 mg capsule 0.4 mg PO DAILY #90 caps 01/02/23 01/02/23 Rx pramipexole 1.5 mg tablet 0.75 mg PO QHS #270 tabs 01/03/23 Rx empagliflozin 25 mg tablet 25 mg PO DAILY #90 tabs 04/10/23 Rx (Jardiance) Allergies Allergy/AdvReac Type Severity Reaction Status Date / Time lisinopril AdvReac Intermediate Cough Verified 02/28/23 18:05 Vital Signs Vital Signs - 24 hr 04/25/23 09:16 04/25/23 09:24 04/25/23 09:33 Temperature 97.8 F Pulse Rate 83 74 Respiratory Rate 20 16
[2023-04-25 16:09] LABS: Glucose Point of Care 49 mg/dl (65-105)
[2023-04-25] MEDS: GLUCOSE ORAL GEL 15 GM OF GLUCSE IN 37.5 GM TUBE PO (16:12)
[2023-04-25 16:45] LABS: Glucose Point of Care 50 mg/dl (65-105)
[2023-04-25 16:50] LABS: Glucose Point of Care 58 mg/dl (65-105)
[2023-04-25] MEDS: DEXTROSE 50% 25 GM/50 ML SYRINGE IV PUSH (16:55)
[2023-04-25 17:18] LABS: Glucose Point of Care 172 mg/dl (65-105)
[2023-04-25 17:20] LABS: Hemoglobin A1C 8.4 % (<5.7)
[2023-04-25] MEDS: PHENOL/SOD PHENO SPRAY CHERRY (*BKC) 1 SPRAY MUCOUS MEM (18:32)
[2023-04-25 20:37] LABS: Glucose Point of Care 146 mg/dl (65-105)
[2023-04-25] MEDS: guaiFENesin 12 HR 600 MG TABCR 1200 MG PO (21:42)
[2023-04-26] VITALS (7 sets, daily range): BP systolic 114–123; BP diastolic 62–71; PULSE 80–86; RESP 14–18; TEMP 36.6–36.9; O2SAT 91–98
[2023-04-26 00:11] LABS: Glucose Point of Care 71 mg/dl (65-105)
[2023-04-26 04:56] LABS: Glucose Point of Care 129 mg/dl (65-105)
[2023-04-26 05:54] LABS: Basophils Percent Auto 0.3 % (0.2-1.2); Eosinophils Absolute Auto 0.1 K/mm3 (0-0.3); Eosinophils Percent Auto 0.4 % (0-4.4); Hematocrit 44.6 % (42.0-52.0); Hemoglobin 14.5 g/dL (14.0-18.0); Immature Granulocyte Absolute 0.06 K/mm3 (0.00-0.031); Immature Granulocyte Percent A 0.4 % (0-0.5); Lymphocytes Absolute Auto 2.76 K/mm3 (0.9-3.2); Lymphocytes Percent Auto 20.5 % (18.3-44.2); Mean Corpuscular HGB Conc 32.5 g/dl (32-36); Mean Corpuscular Hemoglobin 28.6 pg (26-34); Mean Platelet Volume 9.5 fl (7.4-10.4); Monocytes Absolute Auto 1.1 K/mm3 (0.1-0.6); Monocytes Percent Auto 7.9 % (2.6-8.5); Neutrophils Absolute Auto 9.5 K/mm3 (1.3-6.7); Neutrophils Percent Auto 70.5 % (45.5-73.1); Platelet Count Result 182 k/mm3 (150-375); Red Blood Count 5.07 M/mm3 (4.6-6.20); Red Cell Distribution Width 15.9 % (11.5-14.5); White Blood Count 13.5 K/mm3 (4.5-10.0)
[2023-04-26 06:08] LABS: Alanine Aminotransferase 27 U/L (6-50); Albumin Level 3.4 g/dL (3.5-5.1); Alkaline Phosphatase 100 U/L (38-126); Anion Gap 10 mmol/L (8-16); Aspartate Amino Transferase 35 U/L (17-59); Bilirubin,Total 1.1 mg/dL (0.2-1.3); Blood Urea Nitrogen 11 mg/dL (9-20); CRP 6.9 mg/dL (<1.0); Calcium 8.2 mg/dL (8.4-10.2); Carbon Dioxide 22 mmol/L (22-30); Chloride 105 mmol/L (98-107); Cholesterol 97 mg/dL (0-200); Estimated CRCL calculation 70 ml/min; Estimated Glomerular Filt Rate > 60; Glucose 126 mg/dL (65-110); HDL Direct 43 mg/dL; Magnesium 1.9 mg/dL (1.6-2.3); Potassium 3.5 mmol/L (3.4-5.0); Sodium 137 mmol/L (137-145); Triglycerides 96 mg/dL (<150)
[2023-04-26 06:17] LABS: LDL Cholesterol Direct 36 mg/dL
[2023-04-26 06:20] LABS: Hemoglobin A1C 8.5 % (<5.7)
[2023-04-26 06:30] LABS: Procalcitonin 2.3 ng/mL
--- NOTE | 2023-04-26 07:00 | PM.IMPN ---
Progress Note: A&P Assessment and Plan (1) CAP (community acquired pneumonia): Code(s): J18.9 - Pneumonia, unspecified organism Status: Acute Assessment and Plan: Complaints of cough, sore throat, fatigue, weakness for the last 2 days WBC slightly elevated 11.1 Afebrile Lung sounds are coarse with rhonchi He received azithromycin and Rocephin in the ER as well as a 500 mL bolus Blood cultures pending Procal 3.0 incentive spirometry prn nebs ordered 04/26: WBC slightly increased today 13.5, CRP increased to 6.9. Clinically he looks better and states that he feels better. (2) Diabetes: Code(s): E11.9 - Type 2 diabetes mellitus without complications Status: Acute Assessment and Plan: Unknown A1C. On glimepiride, metformin, empagliflozin glucose on BMP was 63. Accu check 49. Hypoglycemia protocol ordered SSI low dose. Holding oral agents. a1c ordered for the morning 04/26: Hypoglycemia overnight. Patient required an amp of D50 and blood glucose increased to 176 and remained stable overnight. Poor appetite. Add on nutritional supplements. (3) Dementia: Code(s): F03.90 - Unspecified dementia, unspecified severity, without behavioral disturbance, psychotic disturbance, mood disturbance, and anxiety Status: Acute Assessment and Plan: Alert and orientated to person, hospital, year and month. Did not know the name of the hospital. on donepezil (4) Parkinson's Disease: Code(s): G20 - Parkinson's disease Status: Acute Assessment and Plan: On carbidopa-levodopa (5) BPH (benign prostatic hyperplasia): Code(s): N40.0 - Benign prostatic hyperplasia without lower urinary tract symptoms Status: Acute Assessment and Plan: Stable. tamsulosin, continued. (6) Hyperlipidemia: Code(s): E78.5 - Hyperlipidemia, unspecified Status: Acute Assessment and Plan: On rosuvastatin 20 mg daily lipid panel ordered Triglycerides 96, cholesterol 97, LDL 36, HDL 43. Plan Feeding:diabetic diet Analgesia:tylenol Thromboembolic prophylaxis: lovenox Ulcer prophylaxis: PPI Glycemic control: low dose SSI, hypoglycemia protocol Bowel regimen: miralax prn Lines: PIV Antibiotics: azithromycin and Rocephin Disposition: home when clinically better Subjective Date/time seen: 04/26/23 07:00 Interval history: This is a 69-year-old male juan j with a past medical history of dementia, diabetes, parkinson's disease, BPH and CABG.? The HPI is obtained from medical record.? When I tried to interview the patient he refused to participate and asked that I call his Aby. When I completed in ROS with him he denied any complaints.? I tried to contact his by phone but received a voicemail.? According to the ER notes, he presents to the ER with his with complaints of cough, sore throat, fatigue, weakness for the past 2 days. In the ER his white count was mildly elevated at 11.1, BNP 424, CRP 4.5, glucose 63.? Chest x-ray shows airspace opacities in the left lower lung zone consistent with atelectasis versus pneumonia.? Lactic acid was normal, he is afebrile, and not requiring oxygen at this time.? On assessment his lungs are coarse with rhonchi throughout bilateral lower lobes.? He was admitted for concerns of community-acquired pneumonia with treatment of IV antibiotics. 04/26: Doing well today. Patient says his breathing is better. Lung sounds are improved but still sounds tight. His appetite is poor. Review of Systems Review of Systems: ROS unobtainable: Yes unobtainable due to mental status Exam Narrative: General: flushed, chronically ill appearing, appears stated age. HEENT: normocephalic, atraumatic. Mucous membranes tacky. EOMI, PERRLA, bilateral sclera anicteric, no conjunctival injection. Neck supple without JVD, lymphadenopathy, or bruit. Respiratory: Lung sounds are more clear today but rhoni
[2023-04-26 08:17] LABS: Glucose Point of Care 93 mg/dl (65-105)
[2023-04-26] MEDS: CARBIDOPA/LEVODOPA 25/100 MG TABLET 1 TABLET PO ×3 (08:19→17:41)
[2023-04-26] MEDS: ENOXAPARIN 40 MG/0.4 ML SYRINGE SUB-Q (08:20)
[2023-04-26] MEDS: FINASTERIDE 5 MG TABLET PO (08:20)
[2023-04-26] MEDS: guaiFENesin 12 HR 600 MG TABCR 1200 MG PO ×2 (08:20→22:22)
[2023-04-26] MEDS: MEMANTINE 10 MG TABLET PO ×2 (08:21→17:41)
[2023-04-26] MEDS: TAMSULOSIN HCL 0.4 MG CAPSULE PO (08:22)
[2023-04-26] MEDS: ROSUVASTATIN 10 MG TABLET 20 MG PO (08:22)
[2023-04-26] MEDS: PANTOPRAZOLE 40 MG TABLET PO (08:22)
[2023-04-26] MEDS: METOPROLOL SUCCINATE EXT REL 25 MG TABCR PO (08:26)
[2023-04-26] MEDS: AZITHROMYCIN 500 MG/NS 250 ML 500 MG/250 ML BAG 250 MG IVPB (08:55)
[2023-04-26] MEDS: ALBUTEROL SULFATE NEB 2.5 MG/3 ML INH INHALATION (09:25)
[2023-04-26 12:29] LABS: Glucose Point of Care 185 mg/dl (65-105)
[2023-04-26 17:31] LABS: Glucose Point of Care 118 mg/dl (65-105)
[2023-04-26 20:28] LABS: Glucose Point of Care 159 mg/dl (65-105)
[2023-04-26] MEDS: DONEPEZIL HCL 10 MG TABLET PO (22:21)
[2023-04-26] MEDS: ASPIRIN 81 MG ENTERIC TABLET PO (22:21)
[2023-04-27] VITALS (11 sets, daily range): BP systolic 102–155; BP diastolic 56–77; PULSE 77–108; RESP 18–24; TEMP 36.2–39.3; O2SAT 88–99
[2023-04-27 00:16] LABS: Glucose Point of Care 92 mg/dl (65-105)
[2023-04-27 06:04] LABS: Glucose Point of Care 129 mg/dl (65-105)
[2023-04-27 06:04] LABS: Glucose Point of Care 73 mg/dl (65-105)
[2023-04-27 06:18] LABS: Basophils Absolute Auto 0.1 K/mm3 (0.0-0.1); Basophils Percent Auto 0.5 % (0.2-1.2); Eosinophils Percent Auto 0.1 % (0-4.4); Hematocrit 43.1 % (42.0-52.0); Hemoglobin 14.2 g/dL (14.0-18.0); Immature Granulocyte Absolute 0.04 K/mm3 (0.00-0.031); Immature Granulocyte Percent A 0.4 % (0-0.5); Lymphocytes Absolute Auto 2.12 K/mm3 (0.9-3.2); Lymphocytes Percent Auto 22.8 % (18.3-44.2); Mean Corpuscular HGB Conc 32.9 g/dl (32-36); Mean Corpuscular Hemoglobin 29.2 pg (26-34); Mean Corpuscular Volume 88.7 fl (80-100); Mean Platelet Volume 9.9 fl (7.4-10.4); Monocytes Absolute Auto 0.7 K/mm3 (0.1-0.6); Monocytes Percent Auto 7.8 % (2.6-8.5); Neutrophils Absolute Auto 6.4 K/mm3 (1.3-6.7); Neutrophils Percent Auto 68.4 % (45.5-73.1); Platelet Count Result 199 k/mm3 (150-375); Red Blood Count 4.86 M/mm3 (4.6-6.20); Red Cell Distribution Width 15.8 % (11.5-14.5); White Blood Count 9.3 K/mm3 (4.5-10.0)
[2023-04-27 06:22] LABS: Alanine Aminotransferase 39 U/L (6-50); Albumin Level 3.2 g/dL (3.5-5.1); Alkaline Phosphatase 108 U/L (38-126); Anion Gap 8 mmol/L (8-16); Aspartate Amino Transferase 67 U/L (17-59); Blood Urea Nitrogen 10 mg/dL (9-20); Calcium 7.8 mg/dL (8.4-10.2); Carbon Dioxide 25 mmol/L (22-30); Chloride 102 mmol/L (98-107); Estimated CRCL calculation 62 ml/min; Estimated Glomerular Filt Rate > 60; Glucose 148 mg/dL (65-110); Potassium 3.6 mmol/L (3.4-5.0); Sodium 135 mmol/L (137-145)
--- NOTE | 2023-04-27 07:07 | P.PNIM_ITS ---
Progress Note: A&P Assessment and Plan (1) CAP (community acquired pneumonia): Code(s): J18.9 - Pneumonia, unspecified organism Status: Acute Assessment and Plan: Complaints of cough, sore throat, fatigue, weakness for the last 2 days * WBC slightly elevated 11.1 * Afebrile * Lung sounds are coarse with rhonchi * He received azithromycin and Rocephin in the ER as well as a 500 mL bolus * Blood cultures pending * Procal 3.0 * incentive spirometry * prn nebs ordered 04/26: WBC slightly increased today 13.5, CRP increased to 6.9. Clinically he looks better and states that he feels better. 04/27: WBC normalized today at 9.3., afebrile overnight, repeat chest XR today. (2) Diabetes: Code(s): E11.9 - Type 2 diabetes mellitus without complications Status: Acute Assessment and Plan: Unknown A1C. On glimepiride, metformin, empagliflozin * glucose on BMP was 63. Accu check 49. * Hypoglycemia protocol ordered * SSI low dose. Holding oral agents. * a1c ordered for the morning 04/26: Hypoglycemia overnight. Patient required an amp of D50 and blood glucose increased to 176 and remained stable overnight. Poor appetite. Add on nutritional supplements. 04/27: Blood glucose has been stable. Will switch back to ac/hs (3) Diarrhea: Code(s): R19.7 - Diarrhea, unspecified Status: Acute Assessment and Plan: 5 loose BM yesterday * says he has been having loose stools even before admission. * Suspect this could be viral in nature as he has a suspected viral URI as well as PNA. * No abdominal pain, cramping associated with the loose stools * Imodium prn * Will check c-diff but less likely etiology * Monitor electrolytes and replace as needed (4) Poor nutrition: Code(s): E63.9 - Nutritional deficiency, unspecified Status: Acute Assessment and Plan: DM diet with ensures * Poor intake per his * consult for dietitian (5) Dementia: Code(s): F03.90 - Unspecified dementia, unspecified severity, without behavioral disturbance, psychotic disturbance, mood disturbance, and anxiety Status: Acute Assessment and Plan: Alert and orientated to person, hospital, year and month. Did not know the name of the hospital. * on donepezil (6) Parkinson's Disease: Code(s): G20 - Parkinson's disease Status: Acute Assessment and Plan: On carbidopa-levodopa (7) BPH (benign prostatic hyperplasia): Code(s): N40.0 - Benign prostatic hyperplasia without lower urinary tract symptoms Status: Acute Assessment and Plan: Stable. * tamsulosin, continued. (8) Hyperlipidemia: Code(s): E78.5 - Hyperlipidemia, unspecified Status: Acute Assessment and Plan: On rosuvastatin 20 mg daily * lipid panel ordered * Triglycerides 96, cholesterol 97, LDL 36, HDL 43. Plan Feeding:diabetic diet Analgesia:tylenol Thromboembolic prophylaxis: lovenox Ulcer prophylaxis: PPI Glycemic control: low dose SSI, hypoglycemia protocol Bowel regimen: miralax prn Lines: PIV Antibiotics: azithromycin and Rocephin Disposition: home when clinically better Subjective Date/time seen: 04/27/23 07:07 Interval history: This is a 69-year-old male juan j with a past medical history of dementia, diabetes, parkinson's disease, BPH and CABG.? The HPI is obtained from medical record.? When I tried to interview the patient he refused to participate and asked that I call his Aby. When I completed in ROS
--- NOTE | 2023-04-27 07:07 | PM.IMPN ---
Progress Note: A&P Assessment and Plan (1) CAP (community acquired pneumonia): Code(s): J18.9 - Pneumonia, unspecified organism Status: Acute Assessment and Plan: Complaints of cough, sore throat, fatigue, weakness for the last 2 days WBC slightly elevated 11.1 Afebrile Lung sounds are coarse with rhonchi He received azithromycin and Rocephin in the ER as well as a 500 mL bolus Blood cultures pending Procal 3.0 incentive spirometry prn nebs ordered 04/26: WBC slightly increased today 13.5, CRP increased to 6.9. Clinically he looks better and states that he feels better. 04/27: WBC normalized today at 9.3., afebrile overnight, repeat chest XR today. (2) Diabetes: Code(s): E11.9 - Type 2 diabetes mellitus without complications Status: Acute Assessment and Plan: Unknown A1C. On glimepiride, metformin, empagliflozin glucose on BMP was 63. Accu check 49. Hypoglycemia protocol ordered SSI low dose. Holding oral agents. a1c ordered for the morning 04/26: Hypoglycemia overnight. Patient required an amp of D50 and blood glucose increased to 176 and remained stable overnight. Poor appetite. Add on nutritional supplements. 04/27: Blood glucose has been stable. Will switch back to ac/hs (3) Diarrhea: Code(s): R19.7 - Diarrhea, unspecified Status: Acute Assessment and Plan: 5 loose BM yesterday says he has been having loose stools even before admission. Suspect this could be viral in nature as he has a suspected viral URI as well as PNA. No abdominal pain, cramping associated with the loose stools Imodium prn Will check c-diff but less likely etiology Monitor electrolytes and replace as needed (4) Poor nutrition: Code(s): E63.9 - Nutritional deficiency, unspecified Status: Acute Assessment and Plan: DM diet with ensures Poor intake per his consult for dietitian (5) Dementia: Code(s): F03.90 - Unspecified dementia, unspecified severity, without behavioral disturbance, psychotic disturbance, mood disturbance, and anxiety Status: Acute Assessment and Plan: Alert and orientated to person, hospital, year and month. Did not know the name of the hospital. on donepezil (6) Parkinson's Disease: Code(s): G20 - Parkinson's disease Status: Acute Assessment and Plan: On carbidopa-levodopa (7) BPH (benign prostatic hyperplasia): Code(s): N40.0 - Benign prostatic hyperplasia without lower urinary tract symptoms Status: Acute Assessment and Plan: Stable. tamsulosin, continued. (8) Hyperlipidemia: Code(s): E78.5 - Hyperlipidemia, unspecified Status: Acute Assessment and Plan: On rosuvastatin 20 mg daily lipid panel ordered Triglycerides 96, cholesterol 97, LDL 36, HDL 43. Plan Feeding:diabetic diet Analgesia:tylenol Thromboembolic prophylaxis: lovenox Ulcer prophylaxis: PPI Glycemic control: low dose SSI, hypoglycemia protocol Bowel regimen: miralax prn Lines: PIV Antibiotics: azithromycin and Rocephin Disposition: home when clinically better Subjective Date/time seen: 04/27/23 07:07 Interval history: This is a 69-year-old male juan j with a past medical history of dementia, diabetes, parkinson's disease, BPH and CABG.? The HPI is obtained from medical record.? When I tried to interview the patient he refused to participate and asked that I call his Aby. When I completed in ROS with him he denied any complaints.? I tried to contact his by phone but received a voicemail.? According to the ER notes, he presents to the ER with his with complaints of cough, sore throat, fatigue, weakness for the past 2 days. In the ER his white count was mildly elevated at 11.1, BNP 424, CRP 4.5, glucose 63.? Chest x-ray shows airspace opacities in the left lower lung zone consistent with atelectasis versus pneumonia.? Lactic
[2023-04-27 08:25] LABS: Glucose Point of Care 118 mg/dl (65-105)
[2023-04-27] MEDS: PANTOPRAZOLE 40 MG TABLET PO (10:16)
[2023-04-27] MEDS: ROSUVASTATIN 10 MG TABLET 20 MG PO (10:16)
[2023-04-27] MEDS: FINASTERIDE 5 MG TABLET PO (10:17)
[2023-04-27] MEDS: TAMSULOSIN HCL 0.4 MG CAPSULE PO (10:17)
[2023-04-27] MEDS: MEMANTINE 10 MG TABLET PO ×2 (10:17→17:42)
[2023-04-27] MEDS: guaiFENesin 12 HR 600 MG TABCR 1200 MG PO ×2 (10:17→21:17)
[2023-04-27] MEDS: CARBIDOPA/LEVODOPA 25/100 MG TABLET 1 TABLET PO ×3 (10:17→17:42)
[2023-04-27] MEDS: METOPROLOL SUCCINATE EXT REL 25 MG TABCR PO (10:18)
[2023-04-27] MEDS: ENOXAPARIN 40 MG/0.4 ML SYRINGE SUB-Q (10:18)
[2023-04-27] MEDS: AZITHROMYCIN 500 MG/NS 250 ML 500 MG/250 ML BAG 250 MG IVPB (10:59)
[2023-04-27] MEDS: BELLADONNA ALK/PHENOB ELIX 10 ML, MAG HYDROX/ALUMINUM HYD/SIMETH 30 ML, LIDOCAINE HCL 2... PO (11:00)
[2023-04-27 12:31] LABS: Glucose Point of Care 153 mg/dl (65-105)
--- NOTE | 2023-04-27 14:40 | PCOTNOTE ---
Attempted OT evaluation. Family in room. Patient and family decline OT evaluation stating patient is fatigued. Educated on occupational therapy services. RN notified. Will follow.
[2023-04-27 14:43] LABS: Toxigenic C. Diff NEGATIVE (NEGATIVE)
--- NOTE | 2023-04-27 16:01 | ECG_ITS ---
Measurements Intervals [place] Rate: 110 P: NC: 0 QRS: 11 QRSD: 68 T: 87 QT: 309 QTc: 418 Interpretive Statements ATRIAL FIBRILLATION WITH RAPID VENTRICULAR RESPONSE BORDERLINE ST-T WAVE ABNORMALITY- LAT/HIGH LAT LEADS BASELINE ARTIFACT- I, II, III, AVR, AVL, AVF, V4-V6 ABNORMAL ECG COMPARED TO ECG 04/25/2023 10:05:40 ATRIAL FIBRILLATION NOW PRESENT Electronically Signed On 04-28-2023 9:44:47 DEPUTY ADMINISTRATOR by Dakotah Vaughn D.O.
[2023-04-27] MEDS: ACETAMINOPHEN 325 MG TABLET 650 MG PO (16:20)
[2023-04-27 16:23] LABS: Base Excess ABG 0.8 mEq/l (+/-2.0); Fractional Inspired Oxygen 65 %; HCO3 ABG 23.7 mEq/l (22.0-26.0); Oxygen Content ABG 20.2 %vol (16.0-22.0); Oxygen Saturation ABG 90.6 % (95.0-100.0); Oxyhemoglobin 89.3 % THb (90.0-100.0); PCO2 ABG 33.1 mmHg (35.0-45.0); PO2 ABG 54.5 mmHg (80.0-100.0); PO2 FiO2 Ratio Arterial Blood 0.84 %; Total Hemoglobin 16.1 g/dL (12.0-18.0); pH ABG 7.472 (7.350-7.450)
[2023-04-27 16:24] LABS: Device HIGH FLOW NASAL CANN; Modified Allen's Test Pass; Site Drawn LEFT RADIAL
[2023-04-27 16:54] LABS: Basophils Percent Auto 0.4 % (0.2-1.2); Eosinophils Absolute Auto 0.1 K/mm3 (0-0.3); Eosinophils Percent Auto 0.5 % (0-4.4); Hematocrit 44.8 % (42.0-52.0); Hemoglobin 14.7 g/dL (14.0-18.0); Immature Granulocyte Absolute 0.06 K/mm3 (0.00-0.031); Immature Granulocyte Percent A 0.6 % (0-0.5); Lymphocytes Absolute Auto 1.03 K/mm3 (0.9-3.2); Lymphocytes Percent Auto 10.9 % (18.3-44.2); Mean Corpuscular HGB Conc 32.8 g/dl (32-36); Mean Corpuscular Hemoglobin 28.5 pg (26-34); Mean Corpuscular Volume 86.8 fl (80-100); Monocytes Absolute Auto 0.6 K/mm3 (0.1-0.6); Monocytes Percent Auto 6.1 % (2.6-8.5); Neutrophils Absolute Auto 7.7 K/mm3 (1.3-6.7); Neutrophils Percent Auto 81.5 % (45.5-73.1); Platelet Count Result 209 k/mm3 (150-375); Red Blood Count 5.16 M/mm3 (4.6-6.20); Red Cell Distribution Width 15.7 % (11.5-14.5); White Blood Count 9.5 K/mm3 (4.5-10.0)
[2023-04-27 17:03] LABS: Lactic Acid Reflex 1.6 mmol/L (0.7-2.0)
[2023-04-27 17:13] LABS: NT Pro B Type Natriuretic Pept 482 pg/mL (19.9-100)
[2023-04-27 17:16] LABS: Glucose Point of Care 193 mg/dl (65-105)
[2023-04-27 17:16] LABS: Troponin I < 0.012 ng/mL (0.000-0.034)
[2023-04-27] MEDS: FUROSEMIDE INJ 40 MG/4 ML VIAL IV PUSH (17:43)
[2023-04-27] MEDS: ENOXAPARIN 80 MG/0.8 ML SYRINGE 73 MG SUB-Q (19:01)
[2023-04-27] MEDS: PIPERACILLN/TAZ 3.375GM/NS50ML 3.375 GM/50 ML BAG IVPB (19:01)
[2023-04-27 19:03] LABS: Appearance Urine Clear (Clear); Bacteria Urine None Seen /hpf; Bilirubin Urine Negative (Negative); Blood Urine Negative (Negative); Color Urine Yellow (Yellow); Glucose Urine UA 3+ mg/dL (Negative); Ketones Urine 2+ mg/dL (Negative); Leukocyte Esterase Ur Negative LEU/UL (NEGATIVE); Nitrate Urine Negative (Negative); Non Pathogenic Casts 0-2; Protein Urine Trace mg/dL (Negative); RBC Urine 0-2 /hpf (0-2); Squamous Epithelial Cell Urine None seen /hpf (Few); Urobilinogen Urine 0.2 mg/dL (<2.0); WBC Urine 0-5 /hpf (0-3); pH Urine 5.5 (5.0-9.0)
[2023-04-27 19:16] LABS: Add Urine Microscopic? YES; Specific Grav Ur 1.046 (1.001-1.035)
[2023-04-27 19:33] LABS: Influenza A QL RT-PCR Negative (Negative); Influenza B QL RT-PCR Negative (Negative); RSV RNA, RT-PCR Negative (Negative); SARS-CoV-2 RNA PCR Negative (Negative)
[2023-04-27] MEDS: ASPIRIN 81 MG ENTERIC TABLET PO (21:17)
[2023-04-27] MEDS: DONEPEZIL HCL 10 MG TABLET PO (21:17)
[2023-04-27] MEDS: INSULIN ASPART (*BKC) 100 UNITS/ML SUB-Q (21:19)
[2023-04-27 21:28] LABS: Glucose Point of Care 215 mg/dl (65-105)
[2023-04-27 22:16] LABS: Alanine Aminotransferase 23 U/L (6-50); Albumin Level 3.5 g/dL (3.5-5.1); Alkaline Phosphatase 126 U/L (38-126); Anion Gap 12 mmol/L (8-16); Aspartate Amino Transferase 63 U/L (17-59); Blood Urea Nitrogen 11 mg/dL (9-20); Calcium 8.3 mg/dL (8.4-10.2); Carbon Dioxide 22 mmol/L (22-30); Chloride 102 mmol/L (98-107); Estimated CRCL calculation 70 ml/min; Estimated Glomerular Filt Rate > 60; Glucose 190 mg/dL (65-110); Potassium 3.5 mmol/L (3.4-5.0); Sodium 136 mmol/L (137-145)
[2023-04-28] VITALS (15 sets, daily range): BP systolic 98–129; BP diastolic 48–90; PULSE 62–86; RESP 18–24; TEMP 36.2–37.1; O2SAT 90–100; BMI 25.2
--- NOTE | 2023-04-28 | ECHO_ITS ---
Patient Info Name: Joseph Orta Age: 77 years : 1945 Gender: Male Ht: 67 in Wt: 160 lbs BSA: 1.86 m2 HR: 62 bpm BP: 99 / 48 mmHg Heart Rhythm: Sinus Rhythm Technical Quality: Fair Exam Date: 04/28/2023 2:16 PM Exam Location: Echo Lab Patient Status: Inpatient Admit Date: 04/26/2023 Staff Ordering Physician: Sully Brito APRN Cardiology Manager: Tamiko Gonzales RDCS Attending Provider: Sydnee Sanders MD Referring Physician: Daryl OWUSU; Exam Type: CA echo doppler color flow Study Info Indications - r/o right heart starin Complete two-dimensional, color flow and Doppler transthoracic echocardiogram is performed. Summary 1. Complete two-dimensional, color flow and Doppler transthoracic echocardiogram is performed. 2. Normal left and right ventricular size and systolic function. 3. Grade 1 diastolic noncompliance. 4. Mildly sclerotic but nonstenotic AV. 5. No findings that are indicative of right ventricular pressure overload. Left Ventricle Left ventricular chamber dimension is normal. Left ventricular systolic function is normal, estimated at 55-60%. The left ventricular diastolic function is grade I diastolic dysfunction. Right Ventricle Right ventricular chamber dimension is normal. Right ventricular systolic function is normal. Left Atria Left atrial chamber dimension is normal. Right Atria Right atrial chamber dimension is normal. Aortic Valve The aortic valve is trileaflet. There is mild aortic valve sclerosis. Pulmonic Valve The pulmonic valve is not well visualized. Mitral Valve The mitral valve has normal leaflets. Tricuspid Valve The tricuspid valve leaflets are normal. Pericardium/Pleural The pericardium appears normal. Aorta The aortic root size at the sinus of Valsalva is normal. Left Ventricular Outflow Tract Name Value Normal LVOT 2D LVOT Diameter 2.0 cm LVOT Doppler LVOT Peak Gradient 4 mmHg LVOT Mean Gradient 2 mmHg LVOT VTI 20 cm LVOT VTI/AV VTI Ratio 0.9 LVOT Stroke Volume 63 ml LVOT CO 4.2 l/min LVOT CI 2.2 l/min/m2 Pulmonic Valve Name Value Normal RVOT Doppler RVOT Peak Gradient 1 mmHg PV Doppler PV Peak Gradient 3 mmHg Mitral Valve Name Value Normal MV Doppler MV Decel Troup 265 cm/s2 MV PHT 72 ms MV Area (PHT) 3.0 cm2
[2023-04-28] MEDS: PIPERACILLN/TAZ 3.375GM/NS50ML 3.375 GM/50 ML BAG IVPB ×3 (01:28→16:43)
[2023-04-28] MEDS: ENOXAPARIN 80 MG/0.8 ML SYRINGE 73 MG SUB-Q ×2 (05:45→17:01)
[2023-04-28 06:05] LABS: Hematocrit 42.2 % (42.0-52.0); Hemoglobin 13.7 g/dL (14.0-18.0); Mean Corpuscular HGB Conc 32.5 g/dl (32-36); Mean Corpuscular Hemoglobin 28.3 pg (26-34); Mean Corpuscular Volume 87.2 fl (80-100); Mean Platelet Volume 10.1 fl (7.4-10.4); Platelet Count Result 219 k/mm3 (150-375); Red Blood Count 4.84 M/mm3 (4.6-6.20); Red Cell Distribution Width 15.8 % (11.5-14.5); White Blood Count 20.4 K/mm3 (4.5-10.0)
[2023-04-28 06:25] LABS: Alanine Aminotransferase 25 U/L (6-50); Albumin Level 3.1 g/dL (3.5-5.1); Alkaline Phosphatase 101 U/L (38-126); Anion Gap 8 mmol/L (8-16); Aspartate Amino Transferase 44 U/L (17-59); Bilirubin,Total 1.2 mg/dL (0.2-1.3); Blood Urea Nitrogen 10 mg/dL (9-20); Calcium 7.9 mg/dL (8.4-10.2); Carbon Dioxide 30 mmol/L (22-30); Chloride 101 mmol/L (98-107); Estimated CRCL calculation 56 ml/min; Estimated Glomerular Filt Rate > 60; Glucose 131 mg/dL (65-110); Magnesium 2.2 mg/dL (1.6-2.3); Potassium 2.8 mmol/L (3.4-5.0); Sodium 139 mmol/L (137-145)
--- NOTE | 2023-04-28 07:31 | P.PNIM_ITS ---
Progress Note: A&P Assessment and Plan (1) Acute hypoxic respiratory failure: Code(s): J96.01 - Acute respiratory failure with hypoxia Status: Acute Assessment and Plan: Sudden oxygen requirement of 15 L hi-flow to keep sats greater than 92%, also febrile 102.7. * Lung sounds a diminished but no crackles or wheezing present. * Gave a 1 x dose of IV lasix 40 mg * CTA was inconclusive. Will get VQ scan today. * Started on therapeutic Lovenox * Stopped Rocephin and added Zosyn, continue with azithromycin * Pro yg is 1.0, lactic normal. Repeated blood cultures and urine cultures. (2) CAP (community acquired pneumonia): Code(s): J18.9 - Pneumonia, unspecified organism Status: Acute Assessment and Plan: Complaints of cough, sore throat, fatigue, weakness for the last 2 days * WBC slightly elevated 11.1 * Afebrile * Lung sounds are coarse with rhonchi * He received azithromycin and Rocephin in the ER as well as a 500 mL bolus * Blood cultures pending * Procal 3.0 * incentive spirometry * prn nebs ordered 04/26: WBC slightly increased today 13.5, CRP increased to 6.9. Clinically he looks better and states that he feels better. 04/27: WBC normalized today at 9.3., afebrile overnight, repeat chest XR today. 04/28: Febrile yesterday afternoon 102.7 with new oxygen requirement. Stopped rocephin and added zosyn, kept azithromycin. (3) Diabetes: Code(s): E11.9 - Type 2 diabetes mellitus without complications Status: Acute Assessment and Plan: Unknown A1C. On glimepiride, metformin, empagliflozin * glucose on BMP was 63. Accu check 49. * Hypoglycemia protocol ordered * SSI low dose. Holding oral agents. * a1c ordered for the morning 04/26: Hypoglycemia overnight. Patient required an amp of D50 and blood glucose increased to 176 and remained stable overnight. Poor appetite. Add on nutritional supplements. 04/27: Blood glucose has been stable. Will switch back to ac/hs 04/28: (4) Diarrhea: Code(s): R19.7 - Diarrhea, unspecified Status: Acute Assessment and Plan: 5 loose BM yesterday * says he has been having loose stools even before admission. * Suspect this could be viral in nature as he has a suspected viral URI as well as PNA. * No abdominal pain, cramping associated with the loose stools * Imodium prn * Will check c-diff but less likely etiology * Monitor electrolytes and replace as needed 04/28: K+ 2.9 today. Will give a total of 80 meq K+ with oral and IV. Mg normal. (5) Poor nutrition: Code(s): E63.9 - Nutritional deficiency, unspecified Status: Acute Assessment and Plan: DM diet with glucerna * Poor intake per his * consult for dietitian (6) Dementia: Code(s): F03.90 - Unspecified dementia, unspecified severity, without behavioral disturbance, psychotic disturbance, mood disturbance, and anxiety Status: Acute Assessment and Plan: Alert and orientated to person, hospital, year and month. Did not know the name of the hospital. * on donepezil (7) Parkinson's Disease: Code(s): G20 - Parkinson's disease Status: Acute Assessment and Plan: On carbidopa-levodopa (8) BPH (benign prostatic hyperplasia): Code(s): N40.0 - Benign prostatic hyperplasia without lower urinary tract symptoms Status: Acute Assessment and Plan: Stable. * tamsulosin, continued. (9) Hyperlipidemia: Code(s): E78.5 - Hyperlipidemia, unspecified Status: Acute Assessment a
--- NOTE | 2023-04-28 07:31 | PM.IMPN ---
Progress Note: A&P Assessment and Plan (1) Acute hypoxic respiratory failure: Code(s): J96.01 - Acute respiratory failure with hypoxia Status: Acute Assessment and Plan: Sudden oxygen requirement of 15 L hi-flow to keep sats greater than 92%, also febrile 102.7. Lung sounds a diminished but no crackles or wheezing present. Gave a 1 x dose of IV lasix 40 mg CTA was inconclusive. Will get VQ scan today. Started on therapeutic Lovenox Stopped Rocephin and added Zosyn, continue with azithromycin Pro yg is 1.0, lactic normal. Repeated blood cultures and urine cultures. (2) CAP (community acquired pneumonia): Code(s): J18.9 - Pneumonia, unspecified organism Status: Acute Assessment and Plan: Complaints of cough, sore throat, fatigue, weakness for the last 2 days WBC slightly elevated 11.1 Afebrile Lung sounds are coarse with rhonchi He received azithromycin and Rocephin in the ER as well as a 500 mL bolus Blood cultures pending Procal 3.0 incentive spirometry prn nebs ordered 04/26: WBC slightly increased today 13.5, CRP increased to 6.9. Clinically he looks better and states that he feels better. 04/27: WBC normalized today at 9.3., afebrile overnight, repeat chest XR today. 04/28: Febrile yesterday afternoon 102.7 with new oxygen requirement. Stopped rocephin and added zosyn, kept azithromycin. (3) Diabetes: Code(s): E11.9 - Type 2 diabetes mellitus without complications Status: Acute Assessment and Plan: Unknown A1C. On glimepiride, metformin, empagliflozin glucose on BMP was 63. Accu check 49. Hypoglycemia protocol ordered SSI low dose. Holding oral agents. a1c ordered for the morning 04/26: Hypoglycemia overnight. Patient required an amp of D50 and blood glucose increased to 176 and remained stable overnight. Poor appetite. Add on nutritional supplements. 04/27: Blood glucose has been stable. Will switch back to ac/hs 04/28: (4) Diarrhea: Code(s): R19.7 - Diarrhea, unspecified Status: Acute Assessment and Plan: 5 loose BM yesterday says he has been having loose stools even before admission. Suspect this could be viral in nature as he has a suspected viral URI as well as PNA. No abdominal pain, cramping associated with the loose stools Imodium prn Will check c-diff but less likely etiology Monitor electrolytes and replace as needed 04/28: K+ 2.9 today. Will give a total of 80 meq K+ with oral and IV. Mg normal. (5) Poor nutrition: Code(s): E63.9 - Nutritional deficiency, unspecified Status: Acute Assessment and Plan: DM diet with glucerna Poor intake per his consult for dietitian (6) Dementia: Code(s): F03.90 - Unspecified dementia, unspecified severity, without behavioral disturbance, psychotic disturbance, mood disturbance, and anxiety Status: Acute Assessment and Plan: Alert and orientated to person, hospital, year and month. Did not know the name of the hospital. on donepezil (7) Parkinson's Disease: Code(s): G20 - Parkinson's disease Status: Acute Assessment and Plan: On carbidopa-levodopa (8) BPH (benign prostatic hyperplasia): Code(s): N40.0 - Benign prostatic hyperplasia without lower urinary tract symptoms Status: Acute Assessment and Plan: Stable. tamsulosin, continued. (9) Hyperlipidemia: Code(s): E78.5 - Hyperlipidemia, unspecified Status: Acute Assessment and Plan: On rosuvastatin 20 mg daily lipid panel ordered Triglycerides 96, cholesterol 97, LDL 36, HDL 43. Plan Feeding:diabetic diet Analgesia:tylenol Thromboembolic prophylaxis: lovenox Ulcer prophylaxis: PPI Glycemic control: low dose SSI, hypoglycemia protocol Bowel regimen: miralax prn Lines: PIV Antibiotics: azithromycin and Rocephin Disposition: home when clinically better Subjective D
[2023-04-28 08:01] LABS: Total Cells Counted 100
[2023-04-28 08:02] LABS: Band Neutrophils Percent 15 % (0-6); Hypochromasia 1+ (NORMAL); Lymphocytes Absolute Manual 2.24 K/mm3 (1.1-4.5); Lymphocytes Percent Manual 11 % (18-44); Monocytes Absolute Manual 1.22 K/mm3 (0.1-0.90); Monocytes Percent Manual 6 % (3-9); Neutrophils Absolute Manual 16.93 K/mm3 (1.3-6.7); Neutrophils Percent Manual 68 % (46-73); Platelet Estimate Adequate (Adequate); Poikilocytosis 1+ (NORMAL)
[2023-04-28 08:03] LABS: Anisocytosis 1+ (NORMAL); Burr Cells 1+ (NORMAL); Schistocytes None Seen (NORMAL)
[2023-04-28 08:19] LABS: Glucose Point of Care 157 mg/dl (65-105)
[2023-04-28] MEDS: CARBIDOPA/LEVODOPA 25/100 MG TABLET 1 TABLET PO ×3 (08:21→16:43)
[2023-04-28] MEDS: AZITHROMYCIN 500 MG/NS 250 ML 500 MG/250 ML BAG 250 MG IVPB (08:21)
[2023-04-28] MEDS: POTASSIUM CHLORIDE 20 MEQ ER TABLET 40 MEQ PO (08:21)
[2023-04-28] MEDS: ROSUVASTATIN 10 MG TABLET 20 MG PO (08:21)
[2023-04-28] MEDS: PANTOPRAZOLE 40 MG TABLET PO (08:21)
[2023-04-28] MEDS: SODIUM CHLORIDE 0.9% IV 1,000 ML 75 ML IV CONT ×2 (08:21→19:00)
[2023-04-28] MEDS: LORATADINE 5 MG TABLET PO (08:22)
[2023-04-28] MEDS: METOPROLOL SUCCINATE EXT REL 25 MG TABCR PO (08:22)
[2023-04-28] MEDS: guaiFENesin 12 HR 600 MG TABCR 1200 MG PO ×2 (08:22→21:23)
[2023-04-28] MEDS: TAMSULOSIN HCL 0.4 MG CAPSULE PO (08:22)
[2023-04-28] MEDS: MEMANTINE 10 MG TABLET PO ×2 (08:22→16:43)
[2023-04-28] MEDS: FINASTERIDE 5 MG TABLET PO (08:22)
[2023-04-28] MEDS: POTASSIUM CHLORIDE INJ 40 MEQ in SODIUM CHLORIDE 0.9% IV 500 ML 130 MEQ IVPB (09:48)
--- NOTE | 2023-04-28 09:53 | PC.NURSE ---
Assessment and care performed by Elsyjuan Brewster Student Nurse/[facility] under supervision of gardening instructor or staff. Assessment and any interventions reviewed. Agree with same.
--- NOTE | 2023-04-28 12:49 | PM.IMPN ---
Progress Note: A&P Assessment and Plan (1) Acute hypoxic respiratory failure: Code(s): J96.01 - Acute respiratory failure with hypoxia Status: Acute Assessment and Plan: Lung sounds a diminished BL rpt cxr otis am pt is needing 5 liters of oxygen better cf 15 liters yesterday bc are pending continue to follow will change iv abx to zosyn and vancomycin for multifocal pneumonia continue to watch procalcitonin levels and WCC (2) CAP (community acquired pneumonia): Code(s): J18.9 - Pneumonia, unspecified organism Status: Acute Assessment and Plan: Complaints of cough, sore throat, fatigue, weakness for the last 2 days 04/26: WBC slightly increased today 13.5, CRP increased to 6.9. Clinically he looks better and states that he feels better. 04/27: WBC normalized today at 9.3., afebrile overnight, repeat chest XR today. 04/28: Febrile yesterday afternoon 102.7 with new oxygen requirement. Stopped rocephin and added zosyn, kept azithromycin. 04/28: Changed iv abx to zosyn and vancomycin, watch wcc and procalcitonin levels, follow blood cultures, continue with 5 liters of oxygen order cxr for tomorrow AM (3) Diabetes: Code(s): E11.9 - Type 2 diabetes mellitus without complications Status: Acute Assessment and Plan: Unknown A1C. On glimepiride, metformin, empagliflozin glucose on BMP was 63. Accu check 49. Hypoglycemia protocol ordered SSI low dose. Holding oral agents. a1c ordered for the morning 04/26: Hypoglycemia overnight. Patient required an amp of D50 and blood glucose increased to 176 and remained stable overnight. Poor appetite. Add on nutritional supplements. 04/27: Blood glucose has been stable. Will switch back to ac/hs 04/28: Blood glucose are stable today at 160s (4) Diarrhea: Code(s): R19.7 - Diarrhea, unspecified Status: Acute Assessment and Plan: 2 loose BM yesterday says he has been having loose stools even before admission. Imodium prn Will check c-diff but less likely etiology diarrhea is not so watery today improving potassium levels are low 04/28: K+ 2.9 today. Will give a total of 80 meq K+ with oral and IV. Mg normal. rpt potassium levels after rider (5) Poor nutrition: Code(s): E63.9 - Nutritional deficiency, unspecified Status: Acute Assessment and Plan: DM diet with glucerna Poor intake per his consult for dietitian continue Glucerna supplementation (6) Dementia: Code(s): F03.90 - Unspecified dementia, unspecified severity, without behavioral disturbance, psychotic disturbance, mood disturbance, and anxiety Status: Acute Assessment and Plan: Alert and orientated to person, hospital, year and month. history of dementia mood is stable, pt is calm not agitated on donepezil (7) Parkinson's Disease: Code(s): G20 - Parkinson's disease Status: Acute Assessment and Plan: On carbidopa-levodopa (8) BPH (benign prostatic hyperplasia): Code(s): N40.0 - Benign prostatic hyperplasia without lower urinary tract symptoms Status: Acute Assessment and Plan: Stable. continue tamulosin (9) Hyperlipidemia: Code(s): E78.5 - Hyperlipidemia, unspecified Status: Acute Assessment and Plan: Continue rosuvastatin 20 mg daily lipid panel ordered Triglycerides 96, cholesterol 97, LDL 36, HDL 43. Subjective Date/time seen: 04/28/23 12:49 Interval history: 69-year-old male juan j with a past medical history of dementia, diabetes, parkinson's disease, BPH and CABG.? The HPI is obtained from medical record.? When I tried to interview the patient he refused to participate and asked that I call his Aby. When I completed in ROS with him he denied any complaints.? I tried to contact his by phone but received a voicemail.? According to the ER notes, he presents to the ER with his with compl
[2023-04-28 12:50] LABS: Glucose Point of Care 160 mg/dl (65-105)
[2023-04-28 17:04] LABS: Glucose Point of Care 172 mg/dl (65-105)
[2023-04-28 17:21] LABS: Anion Gap 4 mmol/L (8-16); Blood Urea Nitrogen 11 mg/dL (9-20); Calcium 7.5 mg/dL (8.4-10.2); Carbon Dioxide 29 mmol/L (22-30); Chloride 103 mmol/L (98-107); Estimated CRCL calculation 62 ml/min; Estimated Glomerular Filt Rate > 60; Glucose 161 mg/dL (65-110); Potassium 3.5 mmol/L (3.4-5.0); Sodium 136 mmol/L (137-145)
[2023-04-28 18:31] LABS: MRSA (PCR) NOT DETECTED (NOT DETECTE)
[2023-04-28] MEDS: DONEPEZIL HCL 10 MG TABLET PO (21:23)
[2023-04-28] MEDS: ASPIRIN 81 MG ENTERIC TABLET PO (21:23)
[2023-04-29] VITALS (15 sets, daily range): BP systolic 115–133; BP diastolic 57–70; PULSE 55–77; RESP 16–20; TEMP 36.4–36.6; O2SAT 92–99
[2023-04-29] MEDS: PIPERACILLN/TAZ 3.375GM/NS50ML 3.375 GM/50 ML BAG IVPB ×4 (00:01→17:08)
[2023-04-29 02:58] LABS: Pneumococcal Antigen Urine Not Detected (Not Detected)
[2023-04-29 02:58] LABS: Glucose Point of Care 191 mg/dl (65-105)
[2023-04-29] MEDS: ENOXAPARIN 80 MG/0.8 ML SYRINGE 73 MG SUB-Q (05:46)
[2023-04-29 06:09] LABS: Basophils Absolute Auto 0.1 K/mm3 (0.0-0.1); Basophils Percent Auto 0.4 % (0.2-1.2); Eosinophils Absolute Auto 0.1 K/mm3 (0-0.3); Eosinophils Percent Auto 0.7 % (0-4.4); Hematocrit 40.6 % (42.0-52.0); Hemoglobin 13.2 g/dL (14.0-18.0); Immature Granulocyte Absolute 0.04 K/mm3 (0.00-0.031); Immature Granulocyte Percent A 0.3 % (0-0.5); Lymphocytes Absolute Auto 2.34 K/mm3 (0.9-3.2); Lymphocytes Percent Auto 19.7 % (18.3-44.2); Mean Corpuscular HGB Conc 32.5 g/dl (32-36); Mean Corpuscular Hemoglobin 28.4 pg (26-34); Mean Corpuscular Volume 87.3 fl (80-100); Mean Platelet Volume 9.8 fl (7.4-10.4); Monocytes Absolute Auto 0.7 K/mm3 (0.1-0.6); Neutrophils Absolute Auto 8.7 K/mm3 (1.3-6.7); Neutrophils Percent Auto 72.9 % (45.5-73.1); Platelet Count Result 237 k/mm3 (150-375); Red Blood Count 4.65 M/mm3 (4.6-6.20); White Blood Count 11.9 K/mm3 (4.5-10.0)
[2023-04-29 06:25] LABS: Alanine Aminotransferase 22 U/L (6-50); Albumin Level 2.9 g/dL (3.5-5.1); Alkaline Phosphatase 105 U/L (38-126); Anion Gap 7 mmol/L (8-16); Aspartate Amino Transferase 42 U/L (17-59); Bilirubin,Total 1.1 mg/dL (0.2-1.3); Blood Urea Nitrogen 9 mg/dL (9-20); Calcium 7.8 mg/dL (8.4-10.2); Carbon Dioxide 25 mmol/L (22-30); Chloride 104 mmol/L (98-107); Estimated CRCL calculation 70 ml/min; Estimated Glomerular Filt Rate > 60; Glucose 121 mg/dL (65-110); Potassium 3.3 mmol/L (3.4-5.0); Sodium 136 mmol/L (137-145)
[2023-04-29 06:47] LABS: Anisocytosis 1+ (NORMAL); Atypical Lymphocytes Present; Burr Cells 2+ (NORMAL); Platelet Estimate Adequate (Adequate); Schistocytes None Seen (NORMAL)
[2023-04-29] MEDS: METOPROLOL SUCCINATE EXT REL 25 MG TABCR PO (08:18)
[2023-04-29] MEDS: MEMANTINE 10 MG TABLET PO ×2 (08:18→17:08)
[2023-04-29] MEDS: TAMSULOSIN HCL 0.4 MG CAPSULE PO (08:18)
[2023-04-29] MEDS: FINASTERIDE 5 MG TABLET PO (08:18)
[2023-04-29] MEDS: CARBIDOPA/LEVODOPA 25/100 MG TABLET 1 TABLET PO ×3 (08:18→17:08)
[2023-04-29] MEDS: LORATADINE 5 MG TABLET PO (08:18)
[2023-04-29] MEDS: PANTOPRAZOLE 40 MG TABLET PO (08:18)
[2023-04-29] MEDS: guaiFENesin 12 HR 600 MG TABCR 1200 MG PO ×2 (08:18→21:04)
[2023-04-29] MEDS: POTASSIUM CHLORIDE 20 MEQ ER TABLET 40 MEQ PO (08:18)
[2023-04-29] MEDS: ROSUVASTATIN 10 MG TABLET 20 MG PO (08:18)
[2023-04-29 08:26] LABS: Glucose Point of Care 122 mg/dl (65-105)
[2023-04-29] MEDS: SODIUM CHLORIDE 0.9% IV 1,000 ML 75 ML IV CONT (12:08)
[2023-04-29 12:22] LABS: Glucose Point of Care 176 mg/dl (65-105)
[2023-04-29] MEDS: LOPERAMIDE HCL 2 MG CAPSULE PO (14:47)
[2023-04-29 17:06] LABS: Glucose Point of Care 220 mg/dl (65-105)
[2023-04-29] MEDS: INSULIN ASPART (*BKC) 100 UNITS/ML SUB-Q (17:09)
--- NOTE | 2023-04-29 17:35 | PM.IMPN ---
Progress Note: A&P Assessment and Plan (1) Acute hypoxic respiratory failure: Code(s): J96.01 - Acute respiratory failure with hypoxia Status: Acute Assessment and Plan: Lung sounds a diminished BL Repeat chest x-ray reviewed which shows consistent airspace opacities patient's oxygen requirements her consistently decreasing from 12-15 L/min a couple days ago to 2-3 L per bc are negative so far ... continue to follow sputum cultures are negative procalcitonin and WBC counts continues to downtrend (2) CAP (community acquired pneumonia): Code(s): J18.9 - Pneumonia, unspecified organism Status: Acute Assessment and Plan: Complaints of cough, sore throat, fatigue, weakness for the last 2 days 04/26: WBC slightly increased today 13.5, CRP increased to 6.9. Clinically he looks better and states that he feels better. 04/27: WBC normalized today at 9.3., afebrile overnight, repeat chest XR today. 04/28: Febrile yesterday afternoon 102.7 with new oxygen requirement. Stopped rocephin and added zosyn, kept azithromycin. 04/28: Changed iv abx to zosyn and vancomycin, watch wcc and procalcitonin levels, follow blood cultures, continue with 5 liters of oxygen order cxr for tomorrow AM 04/29: DC IV vancomycin as MRSA workup is negative, continue with IV Zosyn (3) Diabetes: Code(s): E11.9 - Type 2 diabetes mellitus without complications Status: Acute Assessment and Plan: On glimepiride, metformin, empagliflozin glucose on BMP was 63. Accu check 49. Hypoglycemia protocol ordered SSI low dose. Holding oral agents. 04/26: Hypoglycemia overnight. Patient required an amp of D50 and blood glucose increased to 176 and remained stable overnight. Poor appetite. Add on nutritional supplements. 04/27: Blood glucose has been stable. Will switch back to ac/hs 04/28: Blood glucose are stable today at 160s 04/29: Hemoglobin A1c is 8.5%. blood sugar controls are improving. (4) Diarrhea: Code(s): R19.7 - Diarrhea, unspecified Status: Acute Assessment and Plan: 2 loose BM yesterday says he has been having loose stools even before admission. Imodium prn Will check c-diff but less likely etiology diarrhea is not so watery today improving potassium levels are low 04/28: K+ 2.9 today. Will give a total of 80 meq K+ with oral and IV. Mg normal. rpt potassium levels after rider 04/29: Potassium level today is 3.3. Continue with the oral potassium supplementation. Imodium as needed for diarrhea (5) Poor nutrition: Code(s): E63.9 - Nutritional deficiency, unspecified Status: Acute Assessment and Plan: DM diet with glucerna Poor intake per his consult for dietitian continue Glucerna supplementation (6) Dementia: Code(s): F03.90 - Unspecified dementia, unspecified severity, without behavioral disturbance, psychotic disturbance, mood disturbance, and anxiety Status: Acute Assessment and Plan: Alert and orientated to person, hospital, year and month. history of dementia mood is stable, pt is calm not agitated on donepezil (7) Parkinson's Disease: Code(s): G20 - Parkinson's disease Status: Acute Assessment and Plan: On carbidopa-levodopa stable (8) BPH (benign prostatic hyperplasia): Code(s): N40.0 - Benign prostatic hyperplasia without lower urinary tract symptoms Status: Acute Assessment and Plan: Stable. continue tamulosin (9) Hyperlipidemia: Code(s): E78.5 - Hyperlipidemia, unspecified Status: Acute Assessment and Plan: Continue rosuvastatin 20 mg daily lipid panel ordered Triglycerides 96, cholesterol 97, LDL 36, HDL 43. Plan ? Patient seen and examined at bedside during my morning rounds ? Collaborated with patient's nurse at the bedside in detail and addressed all concerns ? Labs, electrolytes, radiology, inves
[2023-04-29] MEDS: ASPIRIN 81 MG ENTERIC TABLET PO (21:04)
[2023-04-29] MEDS: DONEPEZIL HCL 10 MG TABLET PO (21:04)
[2023-04-29 21:19] LABS: Glucose Point of Care 168 mg/dl (65-105)
[2023-04-30] VITALS (11 sets, daily range): BP systolic 119–160; BP diastolic 60–75; PULSE 52–82; RESP 16–18; TEMP 36.4; O2SAT 93–97
[2023-04-30] MEDS: PIPERACILLN/TAZ 3.375GM/NS50ML 3.375 GM/50 ML BAG IVPB ×5 (00:08→23:34)
[2023-04-30 02:50] LABS: Legionella pneumophila Ag Ur Not Detected (Not Detected)
[2023-04-30] MEDS: SODIUM CHLORIDE 0.9% IV 1,000 ML 75 ML IV CONT ×2 (04:11→19:17)
--- NOTE | 2023-04-30 08:09 | PM.IMPN ---
Progress Note: A&P Assessment and Plan (1) Acute hypoxic respiratory failure: Code(s): J96.01 - Acute respiratory failure with hypoxia Status: Acute (2) Poor nutrition: Code(s): E63.9 - Nutritional deficiency, unspecified Status: Acute (3) Diarrhea: Code(s): R19.7 - Diarrhea, unspecified Status: Acute (4) CAP (community acquired pneumonia): Code(s): J18.9 - Pneumonia, unspecified organism Status: Acute (5) Dementia: Code(s): F03.90 - Unspecified dementia, unspecified severity, without behavioral disturbance, psychotic disturbance, mood disturbance, and anxiety Status: Acute (6) Parkinson's Disease: Code(s): G20 - Parkinson's disease Status: Acute Plan Assessment and Plan (1) Acute hypoxic respiratory failure: ?Code(s): J96.01 - Acute respiratory failure with hypoxia ?Status:?Acute ?Assessment and Plan: Lung sounds a diminished BL Repeat chest x-ray reviewed which shows consistent airspace opacities patient's oxygen requirements? her consistently decreasing from 12-15 L/min? a couple days ago to 2-3 L per bc are? negative so far ...? continue to follow ?sputum cultures are negative ?procalcitonin and WBC counts continues to downtrend(2) CAP (community acquired pneumonia): ?Code(s): J18.9 - Pneumonia, unspecified organism ?Status:?Acute ?Assessment and Plan: Complaints of cough, sore throat, fatigue, weakness for the last 2 days 04/26: WBC slightly increased today 13.5, CRP increased to 6.9. Clinically he looks better and states that he feels better. 04/27: WBC normalized today at 9.3., afebrile overnight, repeat chest XR today. 04/28: Febrile yesterday afternoon 102.7 with new oxygen requirement. Stopped rocephin and added zosyn, kept azithromycin. 04/28: Changed iv abx to zosyn and vancomycin, watch wcc and procalcitonin levels,? follow blood cultures, continue with 5 liters of oxygen order cxr for tomorrow AM ?04/29: DC IV vancomycin as? MRSA workup is negative, continue with IV Zosyn 04/30 ?Airspace opacities in the lower lung zones with worsening on the right, consistent with pneumonia on xr 04/29. Zosyn was started on April 29, possible fluid overload, echocardiogram showed grade 1 diastolic dysfunction on April 28. Start Lasix 40 mg IV push once, follow-up procalcitonin (3) Diabetes: ?Code(s): E11.9 - Type 2 diabetes mellitus without complications ?Status:?Acute ?Assessment and Plan: ?On glimepiride, metformin, empagliflozin glucose on BMP was 63. Accu check 49. Hypoglycemia protocol ordered SSI low dose. Holding oral agents. 04/26: Hypoglycemia overnight. Patient required an amp of D50 and blood glucose increased to 176 and remained stable overnight. Poor appetite. Add on nutritional supplements. 04/27: Blood glucose has been stable. Will switch back to ac/hs 04/28: Blood glucose are stable today at 160s 04/29: Hemoglobin A1c is 8.5%. ? blood sugar controls are improving. (4) Diarrhea: ?Code(s): R19.7 - Diarrhea, unspecified ?Status:?Acute ?Assessment and Plan: says he has been having loose stools even before admission.? Imodium prn Will check c-diff but less likely etiology diarrhea is not so watery today improving potassium levels are low04/28: K+ 2.9 today. Will give a total of 80 meq K+ with oral and IV. Mg normal. rpt potassium levels after rider 04/29: Potassium level today is 3.3. ? Continue with the oral potassium supplementation.? Imodium as needed for diarrhea 04/30 c diff negative (5) Poor nutrition: ?Code(s): E63.9 - Nutritional deficiency, unspecified ?Status:?Acute ?Assessment and Plan: DM diet with glucerna Poor intake per his consult for dietitian continue Glucerna supplementation(6) Dementia: ?Code(s): F03.90 - Unspecified dementia, unspecified severity, without behavioral disturbance, psychotic disturbance, mood dis
[2023-04-30 08:38] LABS: Glucose Point of Care 124 mg/dl (65-105)
[2023-04-30 09:14] LABS: Anion Gap 6 mmol/L (8-16); Blood Urea Nitrogen 6 mg/dL (9-20); Calcium 7.8 mg/dL (8.4-10.2); Carbon Dioxide 24 mmol/L (22-30); Chloride 108 mmol/L (98-107); Estimated CRCL calculation 70 ml/min; Estimated Glomerular Filt Rate > 60; Glucose 129 mg/dL (65-110); Potassium 3.4 mmol/L (3.4-5.0); Sodium 138 mmol/L (137-145)
[2023-04-30] MEDS: ROSUVASTATIN 10 MG TABLET 20 MG PO (09:35)
[2023-04-30] MEDS: guaiFENesin 12 HR 600 MG TABCR 1200 MG PO ×2 (09:35→21:21)
[2023-04-30] MEDS: CARBIDOPA/LEVODOPA 25/100 MG TABLET 1 TABLET PO ×3 (09:35→16:49)
[2023-04-30] MEDS: LORATADINE 5 MG TABLET PO (09:35)
[2023-04-30] MEDS: PANTOPRAZOLE 40 MG TABLET PO (09:35)
[2023-04-30] MEDS: FINASTERIDE 5 MG TABLET PO (09:35)
[2023-04-30] MEDS: METOPROLOL SUCCINATE EXT REL 25 MG TABCR PO (09:35)
[2023-04-30] MEDS: TAMSULOSIN HCL 0.4 MG CAPSULE PO (09:35)
[2023-04-30] MEDS: MEMANTINE 10 MG TABLET PO ×2 (09:36→16:49)
[2023-04-30] MEDS: ENOXAPARIN 40 MG/0.4 ML SYRINGE SUB-Q (09:36)
[2023-04-30 09:38] LABS: Procalcitonin 3.3 ng/mL
[2023-04-30 12:03] LABS: Glucose Point of Care 186 mg/dl (65-105)
--- NOTE | 2023-04-30 15:19 | PCSTNOTE ---
Please refer to the Bedside Swallow Evaluation in the EMR. Please note, silent aspiration cannot be ruled out at bedside.
[2023-04-30 15:52] LABS: Procalcitonin 2.8 ng/mL
[2023-04-30] MEDS: FUROSEMIDE INJ 40 MG/4 ML VIAL IV PUSH (16:49)
[2023-04-30 16:58] LABS: Glucose Point of Care 220 mg/dl (65-105)
[2023-04-30] MEDS: INSULIN ASPART (*BKC) 100 UNITS/ML SUB-Q (17:38)
[2023-04-30 20:43] LABS: Glucose Point of Care 167 mg/dl (65-105)
[2023-04-30] MEDS: DONEPEZIL HCL 10 MG TABLET PO (21:21)
[2023-04-30] MEDS: ASPIRIN 81 MG ENTERIC TABLET PO (21:21)
[2023-04-30] MEDS: POTASSIUM CHLORIDE 20 MEQ ER TABLET 40 MEQ PO (21:21)
[2023-04-30] MEDS: LOPERAMIDE HCL 2 MG CAPSULE PO (21:21)
[2023-05-01] VITALS (12 sets, daily range): BP systolic 126–157; BP diastolic 69–78; PULSE 51–77; RESP 16–18; TEMP 36.4–36.8; O2SAT 94–96
[2023-05-01] MEDS: LOPERAMIDE HCL 2 MG CAPSULE PO ×3 (05:43→20:22)
[2023-05-01] MEDS: PIPERACILLN/TAZ 3.375GM/NS50ML 3.375 GM/50 ML BAG IVPB ×3 (05:45→17:18)
[2023-05-01 06:17] LABS: Anion Gap 11 mmol/L (8-16); Blood Urea Nitrogen 8 mg/dL (9-20); Carbon Dioxide 23 mmol/L (22-30); Chloride 107 mmol/L (98-107); Estimated CRCL calculation 62 ml/min; Estimated Glomerular Filt Rate > 60; Glucose 146 mg/dL (65-110); Potassium 3.6 mmol/L (3.4-5.0); Sodium 141 mmol/L (137-145)
[2023-05-01 06:29] LABS: Procalcitonin 1.8 ng/mL
[2023-05-01 08:10] LABS: Glucose Point of Care 157 mg/dl (65-105)
[2023-05-01] MEDS: FINASTERIDE 5 MG TABLET PO (08:23)
[2023-05-01] MEDS: POTASSIUM CHLORIDE 20 MEQ ER TABLET 40 MEQ PO ×2 (08:23→16:30)
[2023-05-01] MEDS: guaiFENesin 12 HR 600 MG TABCR 1200 MG PO ×2 (08:23→20:21)
[2023-05-01] MEDS: METOPROLOL SUCCINATE EXT REL 25 MG TABCR PO (08:24)
[2023-05-01] MEDS: CARBIDOPA/LEVODOPA 25/100 MG TABLET 1 TABLET PO ×3 (08:24→16:30)
[2023-05-01] MEDS: TAMSULOSIN HCL 0.4 MG CAPSULE PO (08:24)
[2023-05-01] MEDS: MEMANTINE 10 MG TABLET PO ×2 (08:24→16:30)
[2023-05-01] MEDS: ROSUVASTATIN 10 MG TABLET 20 MG PO (08:24)
[2023-05-01] MEDS: LORATADINE 5 MG TABLET PO (08:25)
[2023-05-01] MEDS: PANTOPRAZOLE 40 MG TABLET PO (08:25)
[2023-05-01] MEDS: SODIUM CHLORIDE 0.9% IV 1,000 ML 75 ML IV CONT (08:26)
[2023-05-01] MEDS: ENOXAPARIN 40 MG/0.4 ML SYRINGE SUB-Q (09:11)
[2023-05-01 11:44] LABS: Glucose Point of Care 249 mg/dl (65-105)
[2023-05-01] MEDS: INSULIN ASPART (*BKC) 100 UNITS/ML SUB-Q ×2 (12:41→17:19)
--- NOTE | 2023-05-01 16:40 | PC.NURSE ---
Family bringing outside food in for patient. Before dinner they gave patient a [place] slushie to drink. Educated family and patient on importance of maintaining diabetic diet. Family stated as long as he's eating that's all that matters. Will continue to educate patient and family.
[2023-05-01 17:14] LABS: Glucose Point of Care 203 mg/dl (65-105)
[2023-05-01] MEDS: CALCIUM GLUC 1,000 MG/NS 50 ML 1,000 MG/50 ML BAG 100 MG IVPB (18:35)
--- NOTE | 2023-05-01 18:51 | PM.IMPN ---
Progress Note: A&P Assessment and Plan (1) Acute hypoxic respiratory failure: Code(s): J96.01 - Acute respiratory failure with hypoxia Status: Acute (2) Poor nutrition: Code(s): E63.9 - Nutritional deficiency, unspecified Status: Acute (3) Diarrhea: Code(s): R19.7 - Diarrhea, unspecified Status: Acute (4) CAP (community acquired pneumonia): Code(s): J18.9 - Pneumonia, unspecified organism Status: Acute (5) Dementia: Code(s): F03.90 - Unspecified dementia, unspecified severity, without behavioral disturbance, psychotic disturbance, mood disturbance, and anxiety Status: Acute (6) Parkinson's Disease: Code(s): G20 - Parkinson's disease Status: Acute Plan Assessment and Plan (1) Acute hypoxic respiratory failure: ?Code(s): J96.01 - Acute respiratory failure with hypoxia ?Status:?Acute ?Assessment and Plan: Lung sounds a diminished BL Repeat chest x-ray reviewed which shows consistent airspace opacities patient's oxygen requirements? her consistently decreasing from 12-15 L/min? a couple days ago to 2-3 L per bc are? negative so far ...? continue to follow ?sputum cultures are negative ?procalcitonin and WBC counts continues to downtrend(2) CAP (community acquired pneumonia): 123: may need home o2. right now o2 needs are increasing at night. c/f sleep apnea vs aspiration again. ?Code(s): 2. J18.9 - Pneumonia, unspecified organism ?Status:?Acute ?Assessment and Plan: Complaints of cough, sore throat, fatigue, weakness for the last 2 days 04/26: WBC slightly increased today 13.5, CRP increased to 6.9. Clinically he looks better and states that he feels better. 04/27: WBC normalized today at 9.3., afebrile overnight, repeat chest XR today. 04/28: Febrile yesterday afternoon 102.7 with new oxygen requirement. Stopped rocephin and added zosyn, kept azithromycin. 04/28: Changed iv abx to zosyn and vancomycin, watch wcc and procalcitonin levels,? follow blood cultures, continue with 5 liters of oxygen order cxr for tomorrow AM ?04/29: DC IV vancomycin as? MRSA workup is negative, continue with IV Zosyn 04/30 ?Airspace opacities in the lower lung zones with worsening on the right, consistent with pneumonia on xr 04/29. Zosyn was started on April 29, possible fluid overload, echocardiogram showed grade 1 diastolic dysfunction on April 28. Start Lasix 40 mg IV push once, follow-up procalcitonin 05/01: procalcitonin neg. c/f aspiration as the cause. f/ sputum cx, MBS study. of note covid, influenza a/b/ rsv urine pneumococcal and legionella ag all neg f/u AM CXR (previous bl pna on xr concerning for aspiration) ct zosyn for 7 days total. this will tx aspiration also f/u am bnp. stop ivf. (3) Diabetes: ?Code(s): E11.9 - Type 2 diabetes mellitus without complications ?Status:?Acute ?Assessment and Plan: ?On glimepiride, metformin, empagliflozin glucose on BMP was 63. Accu check 49. Hypoglycemia protocol ordered SSI low dose. Holding oral agents. 04/26: Hypoglycemia overnight. Patient required an amp of D50 and blood glucose increased to 176 and remained stable overnight. Poor appetite. Add on nutritional supplements. 04/27: Blood glucose has been stable. Will switch back to ac/hs 04/28: Blood glucose are stable today at 160s 04/29: Hemoglobin A1c is 8.5%. ? blood sugar controls are improving. 05/01: ct iss (4) Diarrhea: ?Code(s): R19.7 - Diarrhea, unspecified ?Status:?Acute ?Assessment and Plan: says he has been having loose stools even before admission.? Imodium prn Will check c-diff but less likely etiology diarrhea is not so watery today improving potassium levels are low04/28: K+ 2.9 today. Will give a total of 80 meq K+ with oral and IV. Mg normal. rpt potassium levels after rider 04/29: Potassium level today is 3.3. ? Continue with the oral potassium supplementation.? Imodium as ne
[2023-05-01 19:56] LABS: Glucose Point of Care 184 mg/dl (65-105)
[2023-05-01] MEDS: ASPIRIN 81 MG ENTERIC TABLET PO (20:21)
[2023-05-01] MEDS: DONEPEZIL HCL 10 MG TABLET PO (20:21)
[2023-05-02] VITALS (17 sets, daily range): BP systolic 108–111; BP diastolic 53–71; PULSE 52–88; RESP 15–18; TEMP 36.4–37.1; O2SAT 90–96
[2023-05-02] MEDS: PIPERACILLN/TAZ 3.375GM/NS50ML 3.375 GM/50 ML BAG IVPB ×5 (00:24→23:06)
[2023-05-02] MEDS: LOPERAMIDE HCL 2 MG CAPSULE PO ×3 (05:26→20:12)
[2023-05-02 06:12] LABS: Basophils Absolute Auto 0.1 K/mm3 (0.0-0.1); Basophils Percent Auto 1.1 % (0.2-1.2); Eosinophils Absolute Auto 0.2 K/mm3 (0-0.3); Eosinophils Percent Auto 2.5 % (0-4.4); Hematocrit 43.2 % (42.0-52.0); Hemoglobin 13.7 g/dL (14.0-18.0); Immature Granulocyte Absolute 0.06 K/mm3 (0.00-0.031); Immature Granulocyte Percent A 0.7 % (0-0.5); Lymphocytes Absolute Auto 3.27 K/mm3 (0.9-3.2); Lymphocytes Percent Auto 35.7 % (18.3-44.2); Mean Corpuscular HGB Conc 31.7 g/dl (32-36); Mean Corpuscular Hemoglobin 28.4 pg (26-34); Mean Corpuscular Volume 89.6 fl (80-100); Mean Platelet Volume 9.6 fl (7.4-10.4); Monocytes Absolute Auto 0.7 K/mm3 (0.1-0.6); Neutrophils Absolute Auto 4.8 K/mm3 (1.3-6.7); Platelet Count Result 377 k/mm3 (150-375); Red Blood Count 4.82 M/mm3 (4.6-6.20); Red Cell Distribution Width 15.8 % (11.5-14.5); White Blood Count 9.2 K/mm3 (4.5-10.0)
[2023-05-02 06:26] LABS: Anion Gap 7 mmol/L (8-16); Blood Urea Nitrogen 7 mg/dL (9-20); Calcium 8.4 mg/dL (8.4-10.2); Carbon Dioxide 26 mmol/L (22-30); Chloride 105 mmol/L (98-107); Estimated CRCL calculation 56 ml/min; Estimated Glomerular Filt Rate > 60; Glucose 146 mg/dL (65-110); Potassium 4.1 mmol/L (3.4-5.0); Sodium 138 mmol/L (137-145)
[2023-05-02 06:28] LABS: NT Pro B Type Natriuretic Pept 1030 pg/mL (19.9-100)
[2023-05-02 08:23] LABS: Glucose Point of Care 150 mg/dl (65-105)
--- NOTE | 2023-05-02 10:20 | PCPTNOTE ---
After PT treatment session with patient, patient's refused to let PT place chair alarm under patient.
[2023-05-02 11:52] LABS: Glucose Point of Care 189 mg/dl (65-105)
[2023-05-02] MEDS: FINASTERIDE 5 MG TABLET PO (11:53)
[2023-05-02] MEDS: ENOXAPARIN 40 MG/0.4 ML SYRINGE SUB-Q (11:53)
[2023-05-02] MEDS: METOPROLOL SUCCINATE EXT REL 25 MG TABCR PO (11:54)
[2023-05-02] MEDS: LORATADINE 5 MG TABLET PO (11:54)
[2023-05-02] MEDS: guaiFENesin 12 HR 600 MG TABCR 1200 MG PO ×2 (11:54→20:12)
[2023-05-02] MEDS: MEMANTINE 10 MG TABLET PO ×2 (11:54→17:19)
[2023-05-02] MEDS: ROSUVASTATIN 10 MG TABLET 20 MG PO (11:55)
[2023-05-02] MEDS: PANTOPRAZOLE 40 MG TABLET PO (11:55)
[2023-05-02] MEDS: TAMSULOSIN HCL 0.4 MG CAPSULE PO (11:55)
--- NOTE | 2023-05-02 13:22 | PCSTNOTE ---
Please refer to the Modified Barium Swallow Evaluation in the EMR.
[2023-05-02] MEDS: CARBIDOPA/LEVODOPA 25/100 MG TABLET 1 TABLET PO ×2 (13:55→17:19)
--- NOTE | 2023-05-02 14:24 | PCNFU ---
Nutrition Follow-Up Complete: Inadequate Oral Intake as related to Vomitting as evidenced by poor po intake reported. Adequate Intake of at least 75% of meals/supplements - Not meeting goal Goal: Pt current nutrition isDiabetic, soft & bs level 6; moderately thick liquids. Nutrition recommendation: Continue Glucerna TID for additional 220 kcal and 10 g protein each Last recorded weight is 72.9 kg. Bowel Motility: +1 BM 05/01/23 Labs Reviewed: Hgb 13.7, BUN 7, Glu 150 Meds Noted: Aricept Skin: WNL Additional Notes: MBSS thick morning with recommendations of soft & BS diet, moderately thick liquids. Pt's family has been bringing him food, Family needs educated on appropriate texture/viscosity to prevent aspiration. Family not present for visit. Continue current orders. RD will monitor,weight, labs, skin, oral intake, meds every 5 days.
--- NOTE | 2023-05-02 16:06 | PM.IMPN ---
Progress Note: A&P Assessment and Plan (1) Acute hypoxic respiratory failure: Code(s): J96.01 - Acute respiratory failure with hypoxia Status: Acute (2) Poor nutrition: Code(s): E63.9 - Nutritional deficiency, unspecified Status: Acute (3) Diarrhea: Code(s): R19.7 - Diarrhea, unspecified Status: Acute (4) CAP (community acquired pneumonia): Code(s): J18.9 - Pneumonia, unspecified organism Status: Acute (5) Dementia: Code(s): F03.90 - Unspecified dementia, unspecified severity, without behavioral disturbance, psychotic disturbance, mood disturbance, and anxiety Status: Acute (6) Parkinson's Disease: Code(s): G20 - Parkinson's disease Status: Acute Plan Assessment and Plan (1) Acute hypoxic respiratory failure: ?Code(s): J96.01 - Acute respiratory failure with hypoxia ?Status:?Acute ?Assessment and Plan: Lung sounds a diminished BL Repeat chest x-ray reviewed which shows consistent airspace opacities patient's oxygen requirements? her consistently decreasing from 12-15 L/min? a couple days ago to 2-3 L per bc are? negative so far ...? continue to follow ?sputum cultures are negative ?procalcitonin and WBC counts continues to downtrend(2) CAP (community acquired pneumonia): 05/01: may need home o2. right now o2 needs are increasing at night. c/f sleep apnea vs aspiration again. 05/02: multifactorial. Aspiration pneumonia and volume overload. Needs spot diuresis and completion of abx. 40 mg iv lasix now and possibly tomorrow AM after creatinine check. (bnp 400 --> 1000 with IVF administration). wean o2 as tolerated. dc on home o2 with CM. eval ordered. CXR done today shows improving BL PNA and improving BL pleural effusions ?Code(s): 2. J18.9 - Pneumonia, unspecified organism ?Status:?Acute ?Assessment and Plan: Complaints of cough, sore throat, fatigue, weakness for the last 2 days 04/26: WBC slightly increased today 13.5, CRP increased to 6.9. Clinically he looks better and states that he feels better. 04/27: WBC normalized today at 9.3., afebrile overnight, repeat chest XR today. 04/28: Febrile yesterday afternoon 102.7 with new oxygen requirement. Stopped rocephin and added zosyn, kept azithromycin. 04/28: Changed iv abx to zosyn and vancomycin, watch wcc and procalcitonin levels,? follow blood cultures, continue with 5 liters of oxygen order cxr for tomorrow AM ?04/29: DC IV vancomycin as? MRSA workup is negative, continue with IV Zosyn 04/30 ?Airspace opacities in the lower lung zones with worsening on the right, consistent with pneumonia on xr 04/29. Zosyn was started on April 29, possible fluid overload, echocardiogram showed grade 1 diastolic dysfunction on April 28. Start Lasix 40 mg IV push once, follow-up procalcitonin 05/01: procalcitonin neg. c/f aspiration as the cause. f/ sputum cx, MBS study. of note covid, influenza a/b/ rsv urine pneumococcal and legionella ag all neg f/u AM CXR (previous bl pna on xr concerning for aspiration) ct zosyn for 7 days total. this will tx aspiration also f/u am bnp. stop ivf. 05/02: complete 7 days of zosyn/augmentin for asp. pneumonia. (3) Diabetes: ?Code(s): E11.9 - Type 2 diabetes mellitus without complications ?Status:?Acute ?Assessment and Plan: ?On glimepiride, metformin, empagliflozin glucose on BMP was 63. Accu check 49. Hypoglycemia protocol ordered SSI low dose. Holding oral agents. 04/26: Hypoglycemia overnight. Patient required an amp of D50 and blood glucose increased to 176 and remained stable overnight. Poor appetite. Add on nutritional supplements. 04/27: Blood glucose has been stable. Will switch back to ac/hs 04/28: Blood glucose are stable today at 160s 04/29: Hemoglobin A1c is 8.5%. ? blood sugar controls are improving. 05/01: ct iss (4) Diarrhea: ?Code(s): R19.7 - Diarrhea, unspecified ?Status:?Acute ?Assessment and
[2023-05-02 17:01] LABS: Glucose Point of Care 151 mg/dl (65-105)
--- NOTE | 2023-05-02 17:07 | PCRCNOTE ---
HOME OXYGEN EVALUATION COMPLETE; PT. DOES NOT REQUIRE HOME OXYGEN. PRESLEY Pineda NOTIFIED OF THE RESULTS AND ASSISTED WITH WALKING THE PT. FOR THE EVAL.
[2023-05-02] MEDS: FUROSEMIDE INJ 40 MG/4 ML VIAL IV PUSH (17:19)
[2023-05-02] MEDS: ASPIRIN 81 MG ENTERIC TABLET PO (20:13)
[2023-05-02] MEDS: DONEPEZIL HCL 10 MG TABLET PO (20:13)
[2023-05-02 21:03] LABS: Glucose Point of Care 160 mg/dl (65-105)
[2023-05-03] VITALS (13 sets, daily range): BP systolic 80–108; BP diastolic 50–65; PULSE 60–78; RESP 13–18; TEMP 36.4–36.6; O2SAT 88–93
[2023-05-03] MEDS: LOPERAMIDE HCL 2 MG CAPSULE PO ×3 (05:23→20:50)
[2023-05-03] MEDS: PIPERACILLN/TAZ 3.375GM/NS50ML 3.375 GM/50 ML BAG IVPB ×3 (05:23→18:03)
[2023-05-03 05:51] LABS: Basophils Absolute Auto 0.1 K/mm3 (0.0-0.1); Basophils Percent Auto 1.6 % (0.2-1.2); Eosinophils Absolute Auto 0.2 K/mm3 (0-0.3); Hematocrit 44.2 % (42.0-52.0); Hemoglobin 14.1 g/dL (14.0-18.0); Immature Granulocyte Absolute 0.04 K/mm3 (0.00-0.031); Immature Granulocyte Percent A 0.6 % (0-0.5); Lymphocytes Absolute Auto 3.02 K/mm3 (0.9-3.2); Lymphocytes Percent Auto 44.7 % (18.3-44.2); Mean Corpuscular HGB Conc 31.9 g/dl (32-36); Mean Corpuscular Hemoglobin 28.3 pg (26-34); Mean Corpuscular Volume 88.6 fl (80-100); Mean Platelet Volume 9.3 fl (7.4-10.4); Monocytes Absolute Auto 0.8 K/mm3 (0.1-0.6); Monocytes Percent Auto 11.9 % (2.6-8.5); Neutrophils Absolute Auto 2.6 K/mm3 (1.3-6.7); Neutrophils Percent Auto 38.2 % (45.5-73.1); Platelet Count Result 415 k/mm3 (150-375); Red Blood Count 4.99 M/mm3 (4.6-6.20); Red Cell Distribution Width 15.6 % (11.5-14.5); White Blood Count 6.8 K/mm3 (4.5-10.0)
[2023-05-03 06:02] LABS: Anion Gap 8 mmol/L (8-16); Blood Urea Nitrogen 12 mg/dL (9-20); Calcium 8.5 mg/dL (8.4-10.2); Carbon Dioxide 27 mmol/L (22-30); Chloride 103 mmol/L (98-107); Estimated CRCL calculation 50 ml/min; Estimated Glomerular Filt Rate > 60; Glucose 144 mg/dL (65-110); Magnesium 2.1 mg/dL (1.6-2.3); Potassium 3.8 mmol/L (3.4-5.0); Sodium 138 mmol/L (137-145)
[2023-05-03 08:28] LABS: Glucose Point of Care 123 mg/dl (65-105)
[2023-05-03] MEDS: MEMANTINE 10 MG TABLET PO ×2 (10:13→18:03)
[2023-05-03] MEDS: CARBIDOPA/LEVODOPA 25/100 MG TABLET 1 TABLET PO ×3 (10:13→18:03)
[2023-05-03] MEDS: PANTOPRAZOLE 40 MG TABLET PO (10:13)
[2023-05-03] MEDS: ROSUVASTATIN 10 MG TABLET 20 MG PO (10:13)
[2023-05-03] MEDS: TAMSULOSIN HCL 0.4 MG CAPSULE PO (10:13)
[2023-05-03] MEDS: LORATADINE 5 MG TABLET PO (10:14)
[2023-05-03] MEDS: METOPROLOL SUCCINATE EXT REL 25 MG TABCR PO (10:14)
[2023-05-03] MEDS: FINASTERIDE 5 MG TABLET PO (10:14)
[2023-05-03] MEDS: guaiFENesin 12 HR 600 MG TABCR 1200 MG PO ×2 (10:14→20:50)
[2023-05-03] MEDS: ENOXAPARIN 40 MG/0.4 ML SYRINGE SUB-Q (10:28)
[2023-05-03 11:50] LABS: Glucose Point of Care 210 mg/dl (65-105)
[2023-05-03] MEDS: FUROSEMIDE INJ 40 MG/4 ML VIAL IV PUSH (12:24)
[2023-05-03] MEDS: INSULIN ASPART (*BKC) 100 UNITS/ML SUB-Q ×2 (12:24→18:01)
--- NOTE | 2023-05-03 15:05 | PM.IMPN ---
Progress Note: A&P Assessment and Plan (1) Acute hypoxic respiratory failure: Code(s): J96.01 - Acute respiratory failure with hypoxia Status: Acute (2) Poor nutrition: Code(s): E63.9 - Nutritional deficiency, unspecified Status: Acute (3) Diarrhea: Code(s): R19.7 - Diarrhea, unspecified Status: Acute (4) CAP (community acquired pneumonia): Code(s): J18.9 - Pneumonia, unspecified organism Status: Acute (5) Dementia: Code(s): F03.90 - Unspecified dementia, unspecified severity, without behavioral disturbance, psychotic disturbance, mood disturbance, and anxiety Status: Acute (6) Parkinson's Disease: Code(s): G20 - Parkinson's disease Status: Acute Plan Assessment and Plan (1) Acute hypoxic respiratory failure: ?Code(s): J96.01 - Acute respiratory failure with hypoxia ?Status:?Acute ?Assessment and Plan: Lung sounds a diminished BL Repeat chest x-ray reviewed which shows consistent airspace opacities patient's oxygen requirements? her consistently decreasing from 12-15 L/min? a couple days ago to 2-3 L per bc are? negative so far ...? continue to follow ?sputum cultures are negative ?procalcitonin and WBC counts continues to downtrend(2) CAP (community acquired pneumonia): 05/01: may need home o2. right now o2 needs are increasing at night. c/f sleep apnea vs aspiration again. 05/02: multifactorial. Aspiration pneumonia and volume overload. Needs spot diuresis and completion of abx. 40 mg iv lasix now and possibly tomorrow AM after creatinine check. (bnp 400 --> 1000 with IVF administration). wean o2 as tolerated. dc on home o2 with CM. eval ordered. CXR done today shows improving BL PNA and improving BL pleural effusions 05/03: ideally dc pt on home o2 and oral abx for pna. ?Code(s): 2. J18.9 - Pneumonia, unspecified organism ?Status:?Acute ?Assessment and Plan: Complaints of cough, sore throat, fatigue, weakness for the last 2 days 04/26: WBC slightly increased today 13.5, CRP increased to 6.9. Clinically he looks better and states that he feels better. 04/27: WBC normalized today at 9.3., afebrile overnight, repeat chest XR today. 04/28: Febrile yesterday afternoon 102.7 with new oxygen requirement. Stopped rocephin and added zosyn, kept azithromycin. 04/28: Changed iv abx to zosyn and vancomycin, watch wcc and procalcitonin levels,? follow blood cultures, continue with 5 liters of oxygen order cxr for tomorrow AM ?04/29: DC IV vancomycin as? MRSA workup is negative, continue with IV Zosyn 04/30 ?Airspace opacities in the lower lung zones with worsening on the right, consistent with pneumonia on xr 04/29. Zosyn was started on April 29, possible fluid overload, echocardiogram showed grade 1 diastolic dysfunction on April 28. Start Lasix 40 mg IV push once, follow-up procalcitonin 05/01: procalcitonin neg. c/f aspiration as the cause. f/ sputum cx, MBS study. of note covid, influenza a/b/ rsv urine pneumococcal and legionella ag all neg f/u AM CXR (previous bl pna on xr concerning for aspiration) ct zosyn for 7 days total. this will tx aspiration also f/u am bnp. stop ivf. 05/02: complete 7 days of zosyn/augmentin for asp. pneumonia. 05/03: needs 2 more days of abx to complete 7 days. if discharged today, dc on augmentin. (3) Diabetes: ?Code(s): E11.9 - Type 2 diabetes mellitus without complications ?Status:?Acute ?Assessment and Plan: ?On glimepiride, metformin, empagliflozin glucose on BMP was 63. Accu check 49. Hypoglycemia protocol ordered SSI low dose. Holding oral agents. 04/26: Hypoglycemia overnight. Patient required an amp of D50 and blood glucose increased to 176 and remained stable overnight. Poor appetite. Add on nutritional supplements. 04/27: Blood glucose has been stable. Will switch back to ac/hs 04/28: Blood glucose are stable today at 160s 04/29: Hemoglobin A1c is 8.5%. ? blood sugar
[2023-05-03] MEDS: SODIUM CHLORIDE 0.9% IV 250 ML IV CONT (15:15)
--- NOTE | 2023-05-03 15:45 | PCRCNOTE ---
WRONG HOME OXYGEN EVALUATION WAS COMPLETED; SEE RESULTS FROM EVALUATION DONE 05/02/23 IN PT. CARE UNDER CHARTING BY ISABEL ROBERTS. DOES NOT WANT TO REPEAT THE HOME OXYGEN EVALUATION TODAY PT. DID NOT REQUIRE HOME OXYGEN YESTERDAY WITH HOME OXYGEN EVALUATION. PT. HAD DESATURATIONS LAST NIGHT AND WAS PLACED ON OXYGEN BY NURSING. PT. IS TO HAVE AN APNEA LINK DONE TONIGHT ON ROOM AIR TO ASSESS FOR NOCTURNAL OXYGEN NEEDS.
[2023-05-03 16:46] LABS: Glucose Point of Care 224 mg/dl (65-105)
[2023-05-03] MEDS: hydrOXYzine HCL 25 MG TABLET PO (18:03)
[2023-05-03 20:44] LABS: Glucose Point of Care 169 mg/dl (65-105)
[2023-05-03] MEDS: ASPIRIN 81 MG ENTERIC TABLET PO (20:50)
[2023-05-03] MEDS: DONEPEZIL HCL 10 MG TABLET PO (20:50)
[2023-05-04] VITALS (7 sets, daily range): BP systolic 100; BP diastolic 57; PULSE 64–76; RESP 24; TEMP 36.3; O2SAT 91–96
[2023-05-04 07:57] LABS: Basophils Absolute Auto 0.1 K/mm3 (0.0-0.1); Eosinophils Absolute Auto 0.2 K/mm3 (0-0.3); Eosinophils Percent Auto 1.6 % (0-4.4); Hematocrit 43.9 % (42.0-52.0); Immature Granulocyte Absolute 0.06 K/mm3 (0.00-0.031); Immature Granulocyte Percent A 0.6 % (0-0.5); Lymphocytes Absolute Auto 2.87 K/mm3 (0.9-3.2); Lymphocytes Percent Auto 28.1 % (18.3-44.2); Mean Corpuscular HGB Conc 31.9 g/dl (32-36); Mean Corpuscular Hemoglobin 28.1 pg (26-34); Mean Corpuscular Volume 88.2 fl (80-100); Mean Platelet Volume 9.1 fl (7.4-10.4); Monocytes Absolute Auto 0.9 K/mm3 (0.1-0.6); Neutrophils Absolute Auto 6.1 K/mm3 (1.3-6.7); Neutrophils Percent Auto 59.7 % (45.5-73.1); Platelet Count Result 454 k/mm3 (150-375); Red Blood Count 4.98 M/mm3 (4.6-6.20); Red Cell Distribution Width 15.8 % (11.5-14.5); White Blood Count 10.2 K/mm3 (4.5-10.0)
[2023-05-04 08:08] LABS: Magnesium 2.2 mg/dL (1.6-2.3)
[2023-05-04 08:30] LABS: Glucose Point of Care 129 mg/dl (65-105)
--- NOTE | 2023-05-04 08:30 | PM.DS ---
DS: Admitting Diagnosis Discharge Date 05/04/23 DS: Summary Time Spent with Patient Time attestation: Total time spent providing and/or coordinating discharge services: DS: Data Data Completed and Pending Labs on day of discharge: Labs from last 24 hours 05/04/23 05/04/23 05/03/23 08:17 07:41 20:39 WBC 10.2 H RBC 4.98 Hgb 14.0 Hct 43.9 MCV 88.2 MCH 28.1 MCHC 31.9 L RDW 15.8 H Plt Count 454 H MPV 9.1 Immature Gran % (Auto) 0.6 H Neut % (Auto) 59.7 Lymph % (Auto) 28.1 [place]vier % (Auto) 9.0 H Eos % (Auto) 1.6 Baso % (Auto) 1.0 Lymph # (Auto) 2.87 [place]vier # (Auto) 0.9 H Eos # (Auto) 0.2 Baso # (Auto) 0.1 Abs Immat Gran (auto) 0.06 H Absolute Neuts (auto) 6.1 Absolute Nucleated RBC 0.0 Nucleated RBC % 0.0 POC Capillary Glucose Pending 169 H Magnesium 2.2 05/03/23 05/03/23 16:43 11:23 WBC RBC Hgb Hct MCV MCH MCHC RDW Plt Count MPV Immature Gran % (Auto) Neut % (Auto) Lymph % (Auto) [place]vier % (Auto) Eos % (Auto) Baso % (Auto) Lymph # (Auto) [place]vier # (Auto) Eos # (Auto) Baso # (Auto) Abs Immat Gran (auto) Absolute Neuts (auto) Absolute Nucleated RBC Nucleated RBC % POC Capillary Glucose 224 H 210 H Magnesium Preliminary micro results at discharge 05/01/23 21:16 Sputum Culture - Preliminary Sputum Discharge Plan Discharge Consulting providers: Silvia Richardson Patient Disposition: Home Health Service Discharge Instructions: Per Care Coordination: [facility] will contact you prior to their first visit. [facility] will follow for RN and PT/OT/ST eval and treat. [facility] can be contacted at [phone]. RN please fax discharge instructions to [phone] Patient Instructions: Antibiotic Form Stand Alone Forms: General Discharge Information Discharge Medications: No Action aspirin [Adult Aspirin Regimen] 81 mg tablet,delayed release (DR/EC) 81 mg PO QHS donepezil 10 mg tablet 10 mg PO QHS Qty: 90 3RF carbidopa-levodopa 25-100 mg tablet 1 tablet PO TID Qty: 270 3RF tamsulosin 0.4 mg capsule 0.4 mg PO DAILY Qty: 90 3RF metformin 500 mg tablet 500 mg PO DAILY metoprolol succinate 25 mg tablet extended release 24 hr 25 mg PO DAILY Rx Instructions: Take 1 tablet by mouth once daily ondansetron HCl 4 mg Tablet 4 mg PO TID PRN (Reason: Nausea And Vomiting) finasteride 5 mg tablet 5 mg PO DAILY Qty: 90 1RF glimepiride 4 mg tablet 4 mg PO QAM Qty: 90 1RF Rx Instructions: administer with breakfast Trulicity 0.75 mg/0.5 mL pen injector 0.75 mg subcut WEEKLY Qty: 2 5RF rosuvastatin 20 mg tablet 20 mg PO DAILY Qty: 90 1RF Jardiance 25 mg tablet 25 mg PO DAILY Qty: 90 1RF memantine 10 mg tablet 10 mg PO BID Qty: 180 1RF Date of admission: 04/26/23 10:56 Primary Care Provider: Adrian Cavazos Admitting Provider: Sydnee Sanders Attending physician on admission: Spencer Lord Condition: Stable
--- NOTE | 2023-05-04 08:33 | PM.DS ---
DS: Admitting Diagnosis Discharge Date 05/04/23 Admitting Diagnosis acute hypoxic resp failure DS: Discharge Diagnosis Discharge Diagnosis Plan (1) Acute hypoxic respiratory failure: ?Code(s): J96.01 - Acute respiratory failure with hypoxia ?Status:?Acute ?Assessment and Plan: Lung sounds a diminished BL Repeat chest x-ray reviewed which shows consistent airspace opacities patient's oxygen requirements? her consistently decreasing from 12-15 L/min? a couple days ago to 2-3 L per bc are? negative so far ...? continue to follow ?sputum cultures are negative ?procalcitonin and WBC counts continues to downtrend(2) CAP (community acquired pneumonia):05/01: may need home o2. right now o2 needs are increasing at night. c/f sleep apnea vs aspiration again. 05/02: multifactorial. Aspiration pneumonia and volume overload. Needs spot diuresis and completion of abx. 40 mg iv lasix now and possibly tomorrow AM after creatinine check. (bnp 400 --> 1000 with IVF administration). wean o2 as tolerated. dc on home o2 with CM. eval ordered. CXR done today shows improving BL PNA and improving BL pleural effusions 05/03: ideally dc pt on home o2 and oral abx for pna. ?Code(s): 2. J18.9 - Pneumonia, unspecified organism ?Status:?Acute ?Assessment and Plan: Complaints of cough, sore throat, fatigue, weakness for the last 2 days 04/26: WBC slightly increased today 13.5, CRP increased to 6.9. Clinically he looks better and states that he feels better. 04/27: WBC normalized today at 9.3., afebrile overnight, repeat chest XR today. 04/28: Febrile yesterday afternoon 102.7 with new oxygen requirement. Stopped rocephin and added zosyn, kept azithromycin. 04/28: Changed iv abx to zosyn and vancomycin, watch wcc and procalcitonin levels,? follow blood cultures, continue with 5 liters of oxygen order cxr for tomorrow AM ?04/29: DC IV vancomycin as? MRSA workup is negative, continue with IV Zosyn 04/30??Airspace opacities in the lower lung zones with worsening on the right, consistent with pneumonia on xr 04/29.? Zosyn was started on April 29, possible fluid overload, echocardiogram showed grade 1 diastolic dysfunction on April 28.? Start Lasix 40 mg IV push once, follow-up procalcitonin 05/01: procalcitonin neg. c/f aspiration as the cause. f/ sputum cx, MBS study. of note covid, influenza a/b/ rsv urine pneumococcal and legionella ag all neg f/u AM CXR (previous bl pna on xr concerning for aspiration) ct zosyn for 7 days total. this will tx aspiration also f/u am bnp. stop ivf. 05/02: complete 7 days of zosyn/augmentin for asp. pneumonia. 05/03: needs 2 more days of abx to complete 7 days. if discharged today, dc on augmentin. (3) Diabetes: ?Code(s): E11.9 - Type 2 diabetes mellitus without complications ?Status:?Acute ?Assessment and Plan: ?On glimepiride, metformin, empagliflozin glucose on BMP was 63. Accu check 49. Hypoglycemia protocol ordered SSI low dose. Holding oral agents. 04/26: Hypoglycemia overnight. Patient required an amp of D50 and blood glucose increased to 176 and remained stable overnight. Poor appetite. Add on nutritional supplements.04/27: Blood glucose has been stable. Will switch back to ac/hs 04/28: Blood glucose are stable today at 160s 04/29: Hemoglobin A1c is 8.5%. ? blood sugar controls are improving. 05/01: ct iss 05/03: bs under good control (4) Diarrhea: ?Code(s): R19.7 - Diarrhea, unspecified ?Status:?Acute ?Assessment and Plan: says he has been having loose stools even before admission.? Imodium prn Will check c-diff but less likely etiology diarrhea is not so watery today improving potassium levels are low04/28: K+ 2.9 today. Will give a total of 80 meq K+ with oral and IV. Mg normal. rpt potassium levels after rider04/29: Potassium level today is 3.3. ? Continue with the oral potassium supplementation.? Imodium as needed for diarrhea 04/30 c diff negative
[2023-05-04] MEDS: LORATADINE 5 MG TABLET PO (09:02)
[2023-05-04] MEDS: PANTOPRAZOLE 40 MG TABLET PO (09:02)
[2023-05-04] MEDS: MEMANTINE 10 MG TABLET PO (09:02)
[2023-05-04] MEDS: ROSUVASTATIN 10 MG TABLET 20 MG PO (09:02)
[2023-05-04] MEDS: guaiFENesin 12 HR 600 MG TABCR 1200 MG PO (09:02)
[2023-05-04] MEDS: FINASTERIDE 5 MG TABLET PO (09:02)
[2023-05-04] MEDS: CARBIDOPA/LEVODOPA 25/100 MG TABLET 1 TABLET PO (09:02)
[2023-05-04] MEDS: TAMSULOSIN HCL 0.4 MG CAPSULE PO (09:02)
[2023-05-04] MEDS: ENOXAPARIN 40 MG/0.4 ML SYRINGE SUB-Q (09:03)
[2023-05-04] MEDS: METOPROLOL SUCCINATE EXT REL 25 MG TABCR PO (09:16)
[2023-05-04 11:44] LABS: Glucose Point of Care 151 mg/dl (65-105)
== END 2023-05-04 13:05 | disposition home health service (06) | DRG 177 ==
LOC: ANHED 12:02 → ANH2MED 12:16
PROVIDERS: Family Medicine; General Practice; Hospitalist; Nurse Practitioner Acute Care; Admitting Provider General Practice; Emergency Provider Nurse Practitioner Family; PCP Physician Assistant; Visit Provider Internal Medicine
DX: J69.0 Pneumonitis due to inhalation of food and vomit (principal); J96.01 Acute respiratory failure with hypoxia; E87.70 Fluid overload, unspecified; E11.649 Type 2 diabetes mellitus with hypoglycemia without coma; E63.9 Nutritional deficiency, unspecified; E87.6 Hypokalemia; R13.10 Dysphagia, unspecified; E78.5 Hyperlipidemia, unspecified; G20.A1 Parkinson's disease without dyskinesia, without mention of fluctuations; N40.0 Benign prostatic hyperplasia without lower urinary tract symptoms; R19.7 Diarrhea, unspecified; F03.90 Unspecified dementia, unspecified severity, without behavioral disturbance, psychotic disturbance, mood disturbance, and anxiety; Z20.822 Contact with and (suspected) exposure to COVID-19; Z95.1 Presence of aortocoronary bypass graft; Z85.07 Personal history of malignant neoplasm of pancreas; Z79.82 Long term (current) use of aspirin; Z87.891 Personal history of nicotine dependence
CPT/HCPCS: 36415; 36600; 71045; 71275; 74176; 78582; 80048; 80053; 80061; 81001; 82805; 82948; 83036; 83605; 83735; 83880; 84145; 84484; 85025; 86140; 87040; 87070; 87081; 87205; 87449; 87493; 87637; 87641; 87899; 92526; 92610; 92611; 93005; 93306; 94618; 94640; 96361; 96365; 96375; 97161; 97165; 97530; 97535; 99285; A9270; A9540; A9558; G0378; J0456; J0612; J0696; J1650; J1815; J1940; J2543; J3370; J3480; J7030; J7040; J7050; Q9967